=== PATIENT | female | born 1970 | race Asian ===

== ENCOUNTER 2022-08-03 08:36 | Day surgery (SDC) | payer OTHER, SELFPAY ==
[2022-07-30 12:30] VITALS: BMI 19.4
--- NOTE | 2022-08-02 12:03 | P.CONAN_ITS ---
Documented by User: Conchis Nash NP 08/02/22 12:03 HPI - Anesthesia Eval Consult details Narrative: 52yo F for Colonoscopy PENDING SALE TO [facility] Past Medical History Medical History Cervical radiculopathy Endometrial cancer History of COVID-19 Hypothyroid Surgical History Surgical History History of Hx of tonsillectomy Social History Social History Are you a primary patient care associate to a significant other at home: No Do you presently have visiting nurse or other home services: No Patient Tobacco Use Status: Never used Tobacco Use of substances other than those prescribed or required for medical reasons: No Have you been hit, kicked, punched, or otherwise hurt by someone within the past year? If so, by whom?: No Are you DNR?: No Advance Directives Information Provided: Yes (as above noted) Advance Directives on File: No Recently lost weight without trying: No Eating poorly because of decreased appetite: No Nutrition Risks: No Nutritional Risk Patient : No FDLMP: N/A-had hysterectomy Poor oral hygiene: No Meds Allergies Allergy/AdvReac Type Severity Reaction Status Date / Time Sulfa (Sulfonamide Allergy Intermediate Rash Verified 07/30/22 12:30 Antibiotics) Seasonal Allergies Allergy Mild itchy Verified 07/30/22 12:30 eyes/runny nose Home Medications Medication Instructions Recorded Confirmed Last Taken Type dexamethasone 4 mg tablet See Rx Instructions .Route .COMPLEX 07/30/22 07/30/22 Unknown History Exam Exam Date and Time: August 02, 2022 1203 Height,Weight and Vital Signs: Height 5 ft 6 in Weight 54.431 kg Assessment and Plan Assessment Anesthesia Assessment: Chart Reviewed Documented by User: Keri Short MD 08/03/22 10:04 PENDING SALE TO [facility] Past Medical History Medical History Cervical radiculopathy Endometrial cancer History of COVID-19 Hypothyroid Surgical History Surgical History History of Hx of tonsillectomy History of Problems with Anesthesia: No Social History Social History Are you a primary patient care associate to a significant other at home: No Do you presently have visiting nurse or other home services: No Patient Tobacco Use Status: Never used Tobacco Use of substances other than those prescribed or required for medical reasons: No Have you been hit, kicked, punched, or otherwise hurt by someone within the past year? If so, by whom?: No Are you DNR?: No Advance Directives Information Provided: Yes (as above noted) Advance Directives on File: No Recently lost weight without trying: No Eating poorly because of decreased appetite: No Nutrition Risks: No Nutritional Risk Patient : No FDLMP: N/A-had hysterectomy Poor oral hygiene: No Meds Allergies Allergy/AdvReac Type Severity Reaction Status Date / Time Sulfa (Sulfonamide Allergy Intermediate Rash Verified 07/30/22 12:30 Antibiotics) Seasonal Allergies Allergy Mild itchy Verified 07/30/22 12:30 eyes/runny nose Home Medications Medication Instructions Recorded Confirmed Last Taken Type dexamethasone 4 mg tablet See Rx Instructions .Route .COMPLEX 07/30/22 07/30/22 Unknown History Exam Airway Mallampati Class: I TM Dist: >3cm Neck ROM: Full Loose/Missing/Broken Teeth: No Heart: RRR Lungs: CTA Assessment and Plan Assessment Anesthesia Assessment: Anesthesia Plan Discussed Final Anesthetic Review History of Problems with Anesthesia: No NPO: Yes ASA Class: II Final Preanesthetic Review: Meds/Allgs Chart Reviewed, Consent Obtained/Reviewed and Anes Risks/Benef Reviewed Patient Risk: Low Procedure Risk: Low Anesthetic Plan Anesthetic Plan: MAC: Disposition: Standard PACU
[2022-08-03 09:01] VITALS: BMI 19.4
[2022-08-03 09:22] VITALS: BP 151/93; PULSE 68; RESP 15; TEMP 36.2; O2SAT 100
--- NOTE | 2022-08-03 09:38 | MHC.SHP ---
Pre-Procedural Eval Section A Date of Service: 08/03/22 Section B Chief Complaint: screening Relevant Family History (Specify if Yes): No Relevant Social History: None Present Medications: see Short Stay Collaborative assessment Medical History: Significant History (Cervical radiculopathy Endometrial cancer History of COVID-19 Hypothyroid) History of Previous Operations: Relevant previous surgery/procedure and date(s) (c section, Hx of tonsillectomy, pelvic surgery) Allergies: Allergies Allergy/AdvReac Type Severity Reaction Status Date / Time Sulfa (Sulfonamide Allergy Intermediate Rash Verified 07/30/22 12:30 Antibiotics) Seasonal Allergies Allergy Mild itchy Verified 07/30/22 12:30 eyes/runny nose Review of Systems Sugical H&P ROS: Negative: Constitution, Cardiovascular, Respiratory, Neurological, Psychiatric, Hem-Onc, Allergic/Immunologic, Gastrointestinal, Genitourinary, Musculoskeletal, Integumentary, Endocrine and Eyes/Ears/Nose/Throat Exam Surgical H&P Exam: Normal: HEENT, Normal: Heart, Normal: Lungs, Normal: Extremities, Normal: Abdomen, Normal: Skin and Normal: Neurological Plan Diagnosis/Plan: Unchanged I have reviewed the history and physical and performed a pertinent physical examination on my patient. No changes have occurred unless specified. Time Spent With Patient Time: Total time managing care of this patient today ____ minutes.
--- NOTE | 2022-08-03 09:39 | W.PM.OPN ---
Operative Note Operative Note Date of Service: 08/03/22 Narrative: Operative Information Procedure Description: Colonoscopy Indication: colon screeening Anesthesia: MAC COLONOSCOPY Instrument: Olympus variable stiffness pediatric scope 190L Colonoscopy Monitoring: Vital signs and clinical assessment, continuous EKG monitoring, Pulse oximetry, Carbon Dioxide monitoring and blood pressure monitoring were done throughout the procedure. Colon withdrawal time was 13 minutes. Procedure: The patient was placed in the left lateral decubitis position and pre-procedure medications were administered. After a digital rectal examination of the ano-rectum, the video colonoscope was inserted into the rectum and advanced through the colon to the cecum/TI. The colonoscope was slowly withdrawn in a retrograde panoramic fashion and the colon mucosa was carefully examined including a retroflexed view of the rectum. Findings and interventions are described below. Procedure Difficulty: easy Findings: Terminal Ileum-normal Cecum:normal Right sided retroflexion--normal Ascending Colon: normal Transverse Colon -normal Descending Colon:normal Sigmoid Colon: normal Rectum: Retroflexion with small internal hemorrhoids, grade I, x 1 sessile polyp 4-6 mm removed with cold forceps Anorectum - normal Colon preparation: [place] Bowel Preparation Scale Right colon; 2 Transverse colon: 3 Left colon; 3 (0 = Unprepared colon segment with mucosa not seen due to solid stool that cannot be cleared. 1 = Portion of mucosa of the colon segment seen, but other areas of the colon segment not well seen due to staining, residual stool and/or opaque liquid. 2 = Minor amount of residual staining, small fragments of stool and/or opaque liquid, but mucosa of colon segment seen well. 3 = Entire mucosa of colon segment seen well with no residual staining, small fragments of stool or opaque liquid) Impression and Post Procedure Diagnosis: internal hemorrhoids polyp Plan: High fiber diet leaflet Avoid straining at stool, epsom salts and sitz bath, anusol supps or cream Repeat Colonoscopy in 5-7 years if adenomatous polyp, 10 years if hyperplastic or earlier if clinically indicated Above findings were reviewed with the patient and relevant handouts were provided if indicated.
--- NOTE | 2022-08-03 09:45 | P.CONAN_ITS ---
[facility] Past Medical History Medical History Cervical radiculopathy Endometrial cancer History of COVID-19 Hypothyroid Surgical History Surgical History History of Hx of tonsillectomy Social History Social History Are you a primary child care lead teacher to a significant other at home: No Do you presently have visiting nurse or other home services: No Patient Tobacco Use Status: Never used Tobacco Use of substances other than those prescribed or required for medical reasons: No Have you been hit, kicked, punched, or otherwise hurt by someone within the past year? If so, by whom?: No Are you DNR?: No Advance Directives Information Provided: Yes (as above noted) Advance Directives on File: No Recently lost weight without trying: No Eating poorly because of decreased appetite: No Nutrition Risks: No Nutritional Risk Patient : No FDLMP: N/A-had hysterectomy Poor oral hygiene: No Meds Allergies Allergy/AdvReac Type Severity Reaction Status Date / Time Sulfa (Sulfonamide Allergy Intermediate Rash Verified 07/30/22 12:30 Antibiotics) Seasonal Allergies Allergy Mild itchy Verified 07/30/22 12:30 eyes/runny nose Active Medications: Current Medications Lactated Ringer's (Lr) 1,000 mls @ 100 mls/hr IVCONT .Q10H ARVIND Ondansetron HCl (Ondansetron Hcl 4 Mg/2 Ml Vial) 4 mg IVPUSH ONCE PRN PRN Reason: Nausea and Vomiting Home Medications Medication Instructions Recorded Confirmed Last Taken Type dexamethasone 4 mg tablet See Rx Instructions .Route .COMPLEX 07/30/22 07/30/22 Unknown History Exam Exam Date and Time: August 03, 2022 0945 Height,Weight and Vital Signs: Height 5 ft 6 in Weight 54.431 kg Last Vital Signs Temp 97.1 F 08/03/22 09:22 Pulse 68 08/03/22 09:22 Resp 15 08/03/22 09:22 BP 151/93 H 08/03/22 09:22 Pulse Ox 100 08/03/22 09:22 O2 Del Method Room Air 08/03/22 09:22
[2022-08-03 10:23] VITALS: BP 131/84; PULSE 61; RESP 18; TEMP 36.3; O2SAT 100
[2022-08-03 10:49] VITALS: BP 143/88; PULSE 65; RESP 18; TEMP 36.3; O2SAT 100
== END 2022-08-03 11:10 | disposition home or self-care (01) ==
PROVIDERS: PCP Internal Medicine; Visit Provider Internal Medicine Gastroenterology
PROC: 0DJD8ZZ Inspection of Lower Intestinal Tract, Via Natural or Artificial Opening Endoscopic (ICD-10-PCS; CPT 45378; principal; 2022-08-03 10:10)
DX: Z12.11 Encounter for screening for malignant neoplasm of colon (principal); K62.1 Rectal polyp; K64.0 First degree hemorrhoids; Z85.42 Personal history of malignant neoplasm of other parts of uterus; Z88.2 Allergy status to sulfonamides
CPT/HCPCS: 45380; 88305

== ENCOUNTER 2023-09-23 16:16 | Outpatient (AMB) | payer OTHER, SELFPAY ==
[2023-09-23 16:22] VITALS: BMI 20.8
--- NOTE | 2023-09-23 16:22 | A.OFFVIS_ITS ---
Vital Signs 09/23/23 16:22 Height 5 ft 5.5 in Weight 127 lb BMI 20.8 Intake Visit Reasons: Left Ankle Pain Intake Note: Farnaz is a 53 year old female who presents today with left foot/ankle pain. Patient reports that she was on vacation in [facility] when she was walking down an incline and did not see a step. Because she did not see the step down she landed akwardly on the left foot causing the foot to roll laterally and she fell to her hands and knees. She was seen with a doctor on the cruise she was on but her pain had improved slightly. Upon return home she realized that she was having increased pain. Denies numbness and tingling. Allergies Sulfa (Sulfonamide Antibiotics) Allergy (Intermediate, Verified 09/23/23 16:24) Rash Seasonal Allergies Allergy (Mild, Verified 09/23/23 16:24) itchy eyes/runny nose HPI HPI Left Ankle Pain: Details: 53 yo F who twisted her left ankle in [place] ~ 2 weeks ago. She was unable to walk well initially but this resolved within days and she was walking comfortably. Recently however she has started to have anteromedial ankle pain with ambulation. [facility] Medical History Endometrial cancer Cervical radiculopathy Hypothyroid History of COVID-19 Surgical History Hx of tonsillectomy History of Social History Are you a primary care provider to a significant other at home: No Do you presently have visiting nurse or other home services: No Patient Tobacco Use Status: Never used Tobacco Physical Exam Vital Signs: BMI result Body Mass Index 20.8 Extrem Other: left ankle with mild effusion and ttp over distal tib ant and ED. No deltoid ttp and neg ant drawer. Assessment & Plan Assessment & Plan (1) Anterior tibialis tendinitis: Code(s): M76.819 - Anterior tibial syndrome, unspecified leg Category: Medical Plan: Tendonitis after inversion injury to left ankle ~2-3 weeks ago. Boot for ambulation and follow up in 7-10 d. No additional ortho intervention warranted at this time. Coding Level of Care Code New Pt Level 3 (53310) Diagnoses Anterior tibialis tendinitis M76.819
== END 2023-09-23 17:00 | disposition home or self-care (01) ==
LOC: HO.HOS 16:16
PROVIDERS: PCP Nurse Practitioner Family; Visit Provider Orthopaedic Surgery
DX: M76.819 Anterior tibial syndrome, unspecified leg (principal)
CPT/HCPCS: 99203

== ENCOUNTER → 2023-09-23 16:16 | Outpatient (BNVA) | payer OTHER, SELFPAY | PROVIDERS: PCP Nurse Practitioner Family; Visit Provider Orthopaedic Surgery ==

== ENCOUNTER 2023-11-26 10:53 | Outpatient (REF) | payer OTHER, SELFPAY ==
[2023-11-26 11:05] LABS: MANUAL DIFF FLAG NO
[2023-11-26 11:23] LABS: Basophils Percent Auto 0.4 % (0-2); Eosinophils Absolute Auto 0.2 X10*3/uL (0.0-0.4); Eosinophils Percent Auto 3.1 % (0-4); Hematocrit 43.7 % (37.0-47.0); Hemoglobin 13.7 g/dl (12.0-16.0); Imm Gran Abs Auto 0.02 X10*3/uL (0.00-0.03); Imm Gran Pct Auto 0.4 % (0.0-0.4); Lymphocytes Absolute Auto 1.9 X10*3/uL (1.2-4.9); Lymphocytes Percent Auto 38.7 % (20-40); Mean Corpuscular HGB Conc 31.4 g/dl (31.0-35.0); Mean Corpuscular Hemoglobin 25.3 pg (27.0-33.0); Mean Corpuscular Volume 80.6 fL (80.0-98.0); Mean Platelet Volume 8.9 fL (9.4-12.3); Monocytes Absolute Auto 0.5 X10*3/uL (0.1-1.2); Monocytes Percent Auto 10.2 % (2-11); Neutrophils Absolute Auto 2.3 x10*3/uL (2.0-8.3); Neutrophils Percent Auto 47.2 % (45-73); Platelet Count 250 X10*3/uL (160-400); Red Blood Count 5.42 X10*6/uL (4.20-5.50); Red Cell Distribution Width 13.6 % (11.0-16.0); White Blood Count 4.9 X10*3/uL (4.8-10.8)
[2023-11-26 12:03] LABS: Alanine Aminotransferase 17 U/L (0-31); Albumin Level 4.1 g/dL (3.5-5.0); Alkaline Phosphatase 105 U/L (39-117); Anion Gap 14 (12-20); Aspartate Amino Transferase 15 U/L (5-31); Bilirubin Total 0.5 mg/dL (0.0-1.0); Blood Urea Nitrogen 12 mg/dL (9-16); Calcium 9.8 mg/dL (8.4-10.2); Carbon Dioxide 28 mmol/L (22-29); Chloride 106 mmol/L (96-108); Cholesterol 208 mg/dL (<200); Estimated Glomerular Filt Rate > 60; Glucose Fasting 103 mg/dL (60-99); HDL Cholesterol 41 mg/dL (>40); LDL Cholesterol Calculated 141 mg/dL (<100); Potassium 4.9 mmol/L (3.3-5.1); Sodium 143 mmol/L (135-145); Total Protein 7.9 g/dL (6.5-8.0); Triglycerides 132 mg/dL (<150)
[2023-11-26 12:21] LABS: Free T4 (Free Thyroxine) 0.83 ng/dL (0.71-1.85); Thyroid Stimulating Hormone 2.94 uIU/mL (0.32-4.0)
== END 2023-11-26 10:54 | disposition home or self-care (01) ==
LOC: HO.LAB 10:53
PROVIDERS: PCP Internal Medicine Medical Oncology; Visit Provider Internal Medicine Medical Oncology
DX: I10 Essential (primary) hypertension (principal); E05.90 Thyrotoxicosis, unspecified without thyrotoxic crisis or storm; E55.9 Vitamin D deficiency, unspecified
CPT/HCPCS: 36415; 80053; 80061; 82306; 84439; 84443; 85025

== ENCOUNTER 2024-10-16 15:00 | Outpatient (REF) | payer OTHER, SELFPAY ==
--- OUTSIDE RECORDS SUMMARY | 2024-08-24 05:30 | XMS_ITS ---
Author Organization Rufino John III, MD Address [address] [place] [address] Care Team Providers Care Mva Still Operator Name Role Phone Rufino John Primary Care Provider Allergies Allergen (clinical drug ingredient) Drug/Non Drug Allergy documented on EMR Reaction Allergy Type Onset Date Status sulfacetamide Sulfacetamide rash Drug Allergy Active No Known Food Allergy Unknown Drug Allergy Active REASON FOR VISIT Endometrial cancer in remission, Neck pain, History of thyroiditis, Seasonal allergy Medications Medication SIG (Take, Route, Frequency, Duration) Notes Start Date End Date Status Macrodantin 100 MG 1 capsule Orally twi ce a day 11/08/2023 Active Veozah 45 MG 1 tablet Orally Once a day 11/08/2023 Active Ergocalciferol 1.25 MG (65783 UT) 1 capsule Orally weekly 11/08/2023 Acti ve Social History Tobacco Use: Social History Observation Description Date Details (start date - stop date) Never Smoker NA - NA Sex Assigned At : Social History Observation Description Sex Assigned At Female Tobacco Use/Smoking Question Answer Notes Patient is a nonsmoker Additional Findings: Tobacco Non-User Aggressive non-smoker Vital Signs Temperature 97.9 degrees Fahrenheit 08/25/19 25 Blood pressure systolic 130 mm Hg 08/25/19 25 Blood pressure diastolic 80 mm Hg 025 Heart Rate 56 /min 08/24/2024 Height 64.75 in 08/24/2024 Weight 126 lbs 08/24/2024 BMI 21.13 kg/m2 08/24/2024 Encounters Encounter Location Date Provider Diagnosis Rufino John III, MD [address] [place] [address] [place] [address] 08/24/2024 Rufino John Teresa's thyroidi tis E06.3 ; Endometrial cancer C54.1 ; Vitamin D deficiency E55.9 ; Breast cancer screening Z12.31 ; Seasonal allergies J30.2 and Cervical radiculopathy M54.12 Assessments Encounter Date Diagnosis (ICD Code) Assessment Notes Treat ment Notes Treatment Clinical Notes 08/24/2024 Teresa's thyroiditis (ICD-10 - E06.3) Comprehensive blood work including a TSH has been ordered to be done in the next few days. 08/24/2024 Endometrial cancer (ICD-10 - C54.1) She was found to have an early-stage endometrial carcinoma treated with surgery and then radiation at [facility] last year. She appears to be in durable remission at this time. 08/24/2024 Vitamin D deficiency (ICD-10 - E55.9) She will continue on her vitamin D supplement 08/24/2024 Breast cancer screening (ICD-10 - Z12.31) Mammogram has been ordered. There was no sign of breast tumor on today's examination. 08/24/2024 Seasonal allergies (ICD-10 - J30.2) She is currently asymptomatic. Normally. She will use an [id number] nondrowsy antihistamine. 08/24/2024 Cervical radiculopathy (ICD-10 - M54.12) She has occasional pain in her neck with range of motion but is free of that symptom currently. It will be treated as needed. Plan Of Treatment Medication Medication Name Sig Start Date Stop Date Notes Macrodantin 100 MG 1 capsule Orally twi ce a day 11/08/2023 Veozah 45 MG 1 tablet Orally Once a day 11/08/2023 Ergocalciferol 1.25 MG (78416 UT) 1 capsule Orally weekly 11/08/2023 Pending Test Test Name Order Date PROFILE, FASTING (COMPREHENSIVE METABOLI C) 08/24/2024 TSH (THYROID STIMULATING HORMONE) 2024 CBC w DIFF 08/24/2024 Lipid Panel 08/24/2024 Free T4 (Free Thyroxine) 08/24/2024 MM tomosynthesis screening BI 08/24/2024 Hemoglobin A1c 08/24/2024 Next Appt Details Follow Up: 4 Months, Reason: OV Provider Name:Rufino John, 12/25/2024 09:30:00 AM, [address] [place] [address] [address], [place], [address], Progress Notes * ROLANDA HARTIDOB:[birth year] (54 yo F)Acc No.[id number]:08/24/2024 Progress Notes Patient: RACHEL ALMARAZ Provider: Ting John MD :1970 A ge:54 Y S ex:Female Date:08/24/2024 Address:[address] [place], [place] [id number] Subjective: * Chief Complaints: * E ndometrial cancer in remissionNeck painHistory of thyroiditisSeasonal allergy * HPI: C OVID-19 Screening: S he returns to the office for a scheduled periodic visit to manage her medical issues. We discussed her father whom she wants to have in the practice. She has no new complaints. She is working full-time and denies any chest pain shortness of breath bleeding nausea or vomiting or fever. She has been well since her last visit and compliant with her medications. Comprehensive blood work has been ordered. Questions H ave you had any new onset fever, chills, cough, congestion, sore throat, shortness of breath, muscle aches? N o * ROS: G eneral/Constitutional: pain O ccasional intermittent neck pain, otherwise only normal aches and pains. C hills d enies. F atigue a dmits. F ever d enies. E NT: Decreased hearing d enies. R espiratory: Cough d enies. C ardiovascular: Chest pain with exertion d enies. D yspnea on exertion?denies. S hortness of breath d enies. G astrointestinal: Constipation d enies. D ecreased appetite d enies.?Diarrhea d enies. H eartburn d enies. N ausea d enies. R ectal bleeding?denies. V omiting d enies. H ematology: bruising d enies. p etechiae d enies. S wollen glands n one have been noted. G enitourinary: Frequent urination d enies. M usculoskeletal: Muscle aches d enies. P ainful joints d enies. S ciatica d enies. W eakness d enies. S kin: Itching d enies. R cristhian d enies. S kin lesion(s)?denies. N eurologic: Difficulty speaking d enies. D izziness d enies.?Headache d enies. L ow back pain d enies. P sychiatric: Depressed mood d enies. * Medical History: * Surgical History: T onsilectomy x 2 2004, bdominal Hysterectomy, Bilateral Salpingectomy, [place] lymph node biopsy olonoscopy, Dr. Villa, [facility], hyperplastic polyp and internal hemorrhoids G [id number] in [facility] * Hospitalization/Major Diagno stic Procedure: D enies Past Hospitalization * Family History: F ather: alive, prostate cancer, diagnosed with Cancer, DM, HTN, Hyperlipidemia. M other: alive, diagnosed with HTN, DM. 1 brother(s) , 1 sister(s) . 1 son(s) , 1 daughter(s) - healthy. . A sister, Lupe, has Down's syndrome. A brother, Vince, is healthy and well. Her children are otherwise healthy and well.Her father has prostate cancer treated with brachii therapy and intermittent androgen deprivation. He also has hypertension and depression. Her mother is healthy and well at 86. There is no family history of malignancy.She is not aware of any family history of substance abuse or addiction. She is not aware of any family history of mental illness, other than her father's depression. * Social History: T obacco Use: T obacco Use/Smoking P atient is a n onsmoker A dditional Findings: Tobacco Non-User A ggressive non-smoker H er father is a diplomat from [place]. She was born in [place] and then lived in [place] and then in [place] where her father works the night. [employer]. She then moved to [facility]. She attended medical school at [employer]. He'll be in [place]. She is with 2 children. Her is [place] and is unemployed. Her son Bret is 19 in her daughter, Marlene is 16. They are healthy and well. They're both in college. She is working part-time at [employer] and part-time at [employer] in [place].Her spouse's name is Jose Larry. She has no buddhist objection to blood transfusion. She is a nonsmoker. Her father is from [place] and her mother is [place]. * Medications: T akingErgocalciferol 1.25 MG (97581 UT) Capsule 1 capsule Orally weekly Macrodantin 100 MG Capsule 1 capsule Orally twice a day Veozah 45 MG Tablet 1 tablet Orally Once a day Medication List reviewed and reconciled with the patientTaking Ergocalciferol 1.25 MG (83345 UT) Capsule 1 capsule Orally weekly Taking Macrodantin 100 MG Capsule 1 capsule Orally twice a day Taking Veozah 45 MG Tablet 1 tablet Orally Once a day Medication List reviewed and reconciled with the patient * Allergies: S ulfacetamide: rash - AllergyNo Known Food Allergyno[Allergies Verified] Objective: * Vitals: H t: 64.75, Wt: 126, BMI:21.13, BP: 130/80, HR: 56, Temp: 97.9, Ht-cm: 164.47, Wt- k.15. * Examination: G eneral Examination: GENERAL APPEARANCE: p leasant, well nourished, well developed, in no acute distress, calm and relaxed. HEAD: a traumatic, normocephalic. EYES: e jaun, perrla, anicteric, conjugate. EARS: n ormal. NOSE: s eptum intact. ORAL CAVITY: n ormal, unremarkable. NECK/THYROID: n o jugular venous distention, no carotid bruit, thyroid normal. LYMPH NODES: n o enlarged lymph nodes,spleen normal. SKIN: n o suspicious lesions, anicteric. HEART: n o clicks, gallops, murmurs, or rubs, regular rhythm, S1, S2 normal, no s3, or vascular bruits. LUNGS: c lear to auscultation . BREASTS: n o masses palpable bilaterally, no dimpling, no discharge, no drainage, nontender, symmetrical. ABDOMEN: b owel sounds normal, no ascites, no organomegaly, no mass. RECTAL EXAM: n ot examined. MUSCULOSKELETAL: e xtremities unremarkable, no clubbing, cyanosis or edema. PERIPHERAL PULSES: n ormal. NEUROLOGIC: a lert and oriented, cranial nerves 2-12 grossly intact, deep tendon reflexes 2+ symmetrical, motor strength normal upper and lower extremities, sensory exam intact. PSYCH: a lert, oriented. Assessment: * Assessment: 1. E ndometrial cancer - C54.1 (Primary) N otes :She was found to have an early-stage endometrial carcinoma treated with surgery and then radiation at [facility] last year. She appears to be in durable remission at this time. 2 . H ashimoto's thyroiditis - E06.3 N otes :Comprehensive blood work including a TSH has been ordered to be done in the next few days. 3 . V itamin D deficiency - E55.9 N otes :She will continue on her vitamin D supplement 4 . B reast cancer screening - Z12.31 N otes :Mammogram has been ordered. There was no sign of breast tumor on today's examination. 5 . S easonal allergies - J30.2 N otes :She is currently asymptomatic. Normally. She will use an [id number] nondrowsy antihistamine. 6 . C ervical radiculopathy - M54.12 N otes :She has occasional pain in her neck with range of motion but is free of that symptom currently. It will be treated as needed. Plan: * Treatment: 2. V itamin D deficiency L AB: PROFILE, FASTING (COMPREHENSIVE METABOLIC) L AB: TSH (THYROID STIMULATING HORMONE) L AB: CBC w DIFF L AB: Lipid Panel L AB: Free T4 (Free Thyroxine) L AB: Hemoglobin A1c 3. B reast cancer screening I maging: MM tomosynthesis screening BI 4. O thers Continue Ergocalciferol Capsule, 1.25 MG (06745 UT), 1 capsule, Orally, weekly; C ontinue Macrodantin Capsule, 100 MG, 1 capsule, Orally, twice a day; C ontinue Veozah Tablet, 45 MG, 1 tablet, Orally, Once a day. * Procedure Codes: * Follow Up: 4 Months (Reason: OV) * Images: * Sign off status: Completed true * Provider: Ting John MD Date: 0 08/24/2024 Generated for Naomy leyva/Yessy/Bijanitting on: 10/16/2024 03:52 PM EDT History and Physical Notes * HPI (History of Present Illness) Category Sub-Category Detail Notes COVID-19 Screening Questions Have you had any new onset fever, chills, cough, congestion, sore throat, shortness of breath, muscle aches?: No Examination Category Sub-Category Detail Notes General Examination GENERAL APPEARANCE: pleasant , well nourished, well developed, in no acute distress, calm and relaxed HEAD: atraumatic, normocep halic EYES: eomi, perrla, anicte adan, conjugate EARS: normal NOSE: septum intact NECK/THYROID: no jugular venous di stention, no carotid bruit, thyroid normal HEART: no clicks, gallops, murmurs, or rubs, regular rhythm, S1, S2 normal, no s3, or vascular bruits LUNGS: clear to auscultatio n ABDOMEN: bowel sounds normal, no ascites, no organomegaly, no mass NEUROLOGIC: alert and oriented, cranial nerves 2-12 grossly intact, deep tendon reflexes 2+ symmetrical, motor strength normal upper and lower extremities, sensory exam intact SKIN: no suspicious lesion s, anicteric PERIPHERAL PULSES: normal BREASTS: no masses palpable b ilaterally, no dimpling, no discharge, no drainage, nontender, symmetrical MUSCULOSKELETAL: extremities unremark able, no clubbing, cyanosis or edema LYMPH NODES: no enlarged lymph no basim,spleen normal RECTAL EXAM: not examined PSYCH: alert, oriented ORAL CAVITY: normal, unremarkable
--- OUTSIDE RECORDS SUMMARY | 2024-10-16 15:53 | XMS_ITS | Data Portability ---
Author Organization [facility], RADIOLOGY Address [address] [place] [address] Assessment Encounter Date Assessment Date Assessment LastModified by Organization Details LastModified Time 01/14/2023 01/14/2023 MDM: 52 y/o female with bilateral ear pain. Well appearing, in NAD, nontoxic, afebrile. Currently being treated with augmentin for sinus infection. Flying soon, ear with fluid level in left ear. Rx sent for prednisone taper. Return to care instructions discussed with patient. [place] Not available 01/16/2023 17:22:38 Plan of Treatment Reminders Order Date Submit Date Provider Last Modified By Organization Details Last Modified Time Details Appointments None recorded. Lab TSH, ultra-sen sitive, serum 2020 021 [facility] (Lab), [address] [place], [address], 13:53:51 Referral None recorded. Procedures None recorded. Surgeries None recorded. Imaging US, pelvis - Has a Mirena IUD recently inserted. Confirm position. [address] (Imaging), [address] [place], [address], 2 10:39:50 MAMMO, screening , bilateral - Due in February 272020 021 [facility] (Imaging), [address] [place], [address], 2 16:30:32 Medication Orders prednison e 10 mg tablet 2022 023 [facility]/Pharmacy #[id number], [address] [place], [address], 3 14:45:07 prednison e 20 mg tablet [id number], [address] [place], [address], 3 14:51:10 Liletta 20.4 mcg/24 hr (up to 8 years) 52 mg intrauter ine device 2021 022 [email or web address] [facility]/Pharmacy #[id number], [address] [place], [address], 3 14:13:21 norethind joseph acetate 5 mg tablet 2020 022 [facility]/Pharmacy #[id number], [address] [place], [address], 2 08:55:00 Patient TargetsNo targets recorded. Patient Instructions Encounter Date Encounter Id Patient Instructions Last Modified By Organization Details Last Modified Time 04/28/2020 [id number] For administrati ve purposes, I am closing this encounter. [email or web address] Not available 06/25/2020 15:06:53 Reason for Referral None Reported. Results Created Date Observation Date Name Description Value Unit Range Abnormal Flag Note LastModifiedBy Organization Detail LastModifiedTime 05/05/1905/07/2020 tb (M tuber culos is), ifn-g alphonso eduardo , blood quantiferon- TB Negati ve negati ve normal Not Available [facility] (Lab) [address] [place], [address], 05/07/2020 13:57:57 05/05/1905/07/2020 tb (M tuber culos is), ifn-g alphonso eduardo , blood qf mitogen-nil 8.040 IU/mL normal Not Available [facility] (Lab) [address] [place], [address], 05/07/2020 13:57:57 05/05/19 21 05/07/2020 tb (M tuber culos is), ifn-g alphonso eduardo , blood qf nil 0.010 IU/mL normal Not Available [facility] (Lab) [address] [place], [address], 05/07/2020 13:57:57 05/05/19 21 05/07/2020 tb (M tuber culos is), ifn-g alphonso eduardo , blood qf TB Ag1-nil 0.020 IU/mL normal Not Available [facility] (Lab) [address] [place], [address], 05/07/2020 13:57:57 05/05/19 21 05/07/2020 tb (M tuber dallinos is), ifn-g alphonso eduardo , blood qf TB Ag2-nil 0.010 IU/mL normal Not Available [facility] (Lab) [address] [place], [address], 05/07/2020 13:57:57 05/05/1905/07/2020 tb (M tuber culos is), ifn-g alphonso eduardo , blood qf TB interp See Result normal M. carol zamarripaos is infec tion NOT likel y A negat vikram speci men shoul d have a TB1 Ag minus Nil value and TB2 Ag minus Nil value of less than 0.35 IU/mL OR a TB1 Ag minus Nil or TB2 A g minus Nil value great er than or equal to 0.35 IU/mL AND a TB Ag minus Nil va lue from the same tube of less than 25% of the Nil value . A negat vikram speci men must also have a mitog en minus Nil value great er than or equal to 0.5 IU/mL . A negat vikram QFT-P ekta resul t does not precl ude the possi bilit y of M. carol zamarripaos is infec tion. False negat vikram resul ts can occur due to stage of infec tion (spec imen obtai jeremiah prior to the devel opmen t of immun e respo nse), co-mo rbid condi tions which affec t immun e funct ion, or other immun ologi karina facto rs . Perfo rmed by: 3, [facility] [place] tment of Patho logy [facility] [employer] [place] [address] Alayna Palacios MD Not Available [facility] (Lab) [address] [place], [address], 05/07/2020 13:57:57 12/24/19 21 12/23/2020 THYRO ID STIM HORMO NE/TS H [facility] thyroid stimulating hormone 3.69 mciu/ mL 0.27 - 4.20 Not Available [facility] (Lab) [address] [place], [address], 12/23/2020 13:53:51 03/03/20 21 03/23/2021 SURGE RY surgical pathology request RESULT S REC'D See separ ate repor t. Not Available [facility] (Lab) [address] [place], [address], 03/23/2021 06:55:03 10/06/19 22 10/12/2021 SURGE RY surgical pathology request RESULT S REC'D See separ ate repor t. Not Available [facility] (Lab) [address] [place], [address], 10/12/2021 07:25:25 12/26/19 21 03/07/2018 MAMMO sanjay bilat eral No observ ation record ed. Not Available 2020 16:32:53 10/06/19 22 03/06/2021 MAMMO sanjay bilat eral No observ ation record ed. [email or web address] [facility] (Imaging) [address] [place], [address], 10/05/2021 16:30:32 10/10/19 22 10/09/2021 US trans vagin al [place] [facility] Report Pt Name: ROLANDA HOBSON I - : 1969 - [facility]#: [id number] - [facility]#: [id number] Exam Date: 2021 07:20 Ordere d by: JOZEF RUTHERFORD EXAMIN ATION: US PELVIS TV CLINIC AL HISTOR Y: n93.9 abnorm al uterin e bleedi ng mirena IUD placed 022 TECHNI QUE: Transv aginal ultras ound was perfor med with multip le projec tions throug h the pelvis follow ing the depart ment protoc ol. Color- flow Dopple r was utiliz ed as well. COMPAR RANDY: None FINDIN GS: Uterus measur es 9.6 x 5.1 x 6.2 cm. There are no myomet rial masses Endome trial stripe is thicke jeremiah and hetero geneou s. It measur es 2.6 cm. It was not evalua emery with color flow Dopple r. There is a IUD positi oned in the lower uterin e body. 3-D evalua tion of the endome trial stripe was perfor med. Right ovary measur es 2.6 x 1.6 x 2.2 cm. Left ovary measur es 3.8 x 2.0 x 2.7 cm. There are no ovaria n masses demons trated . The left side there are follic les demons trated within the domina nt follic le measur ing 2.2 x 2.2 x 2.4 cm there is a small periph eral daugh ter cyst incide ntally noted. No free pelvic fluid. IMPRES ELISABET: 1. The IUD is not normal ly positi oned. It is within the lower uterin e body endome trial canal. 2. The endome trial stripe is hetero geneou s and thicke jeremiah, measur ing 2.6 cm Recomm end follow -up-salazar ch as repeat ultras ound in 6 weeks. UNEXPE CTED CATHRYN G Thank you for denita hoyos us partic ipate in the care of this patien t. If you are a health care provid er and have any questi ons regard ing this report , please contac t the number below. For patien ts who have questi ons please contac t the health care profes sional that reques emery your imagin g first. Electr onical ly signed by: Leonard fontenot, Radiol ogy Jenna katrin ([phone]), at 022 10:[address] (Imaging) [address] [facility] [place], [address], 10/13/2021 08:04:50 07/01/19 23 03/02/2022 DEXA, axial skele ton No observ ation record ed. [email or web address] Not Available 2022 14:14:59 07/01/19 23 03/09/2022 MAMMO , scree cornelia, bilat eral No observ ation record ed. [email or web address] Not Available 2022 14:23:36 06/17/19 24 06/17/2023 MAMMO , scree cornelia, bilat eral [place] [facility] Rad[facility]gy Report Pt Name: ROLANDA HOBSON I - : 1969 - - [facility]#: [id number] Exam Date: 2023 09:52 Ordere d by: JOZEF RUTHERFORD EXAMIN ATION: MAMMO SCREEN ING CAD AND EDIS BILATE RAL REASON FOR EXAM: Screen ing TECHNI QUE: CC and MLO views were obtain ed of BOTH breast s. 2D and 3D tomosy nthesi s images were obtain ed. Comput er aided detect ion was used. COMPAR RANDY: Compar randy was made to the prior releva nt examin ations . BREAST DENSIT Y: The breast tissue is hetero geneou sly dense, which may obscur e small masses . FINDIN GS: There are no suspic ious microc alcifi cation s, masses , or areas of distor tion. Stable appear ance. IMPRES ELISABET: No mammog raphic eviden ce of malign ben. Routin e annual screen ing mammog aron is recomm ended. FINAL ASSESS MENT: BI-RAD S Catego ry 1: Negati ve * Regula r screen ing mammog rex starti ng at age 40 reduce s the risk of from breast cancer . * Yearly screen ing provid es the most benefi t. Women should discus s with their provid er their prefer red breast cancer screen ing sinanu le. * Women should report any breast change s to a health care provid er right away. * Some women, nikolai marquez of their family histor y, a geneti c tenden cy, or other factor s, should be screen ed with annual breast MRI as well as with mammog rex. Thank you for denita hoyos us partic ipate in the care of this patien t. If you are a health care provid er and have any questi ons regard ing this report , please contac t the number below. For patien ts who have questi ons please contac t the health care profes sional that reques emery your imagin g first. Electr onical ly signed by: Nikki edwards MD, Radiol triciagrace [place] katrin ([phone]), at 024 1:[address] (Imaging) [address] [place] [address], [address], 06/20/2023 10:52:44 Result Notes Documentation Provider Name and Address Organization Details Recorded Time Mammo, Screening, Bilateral : [facility] Radiology Report Pt Name: FARNAZ HART - : 1970 - - Asc#: [id number] Exam Date: 06/17/2023 09:52 Ordered by: ALLYSON RUTHERFORD EXAMINATION: MAMMO SCREENING CAD AND EDIS BILATERAL REASON FOR EXAM: Screening TECHNIQUE: CC and MLO views were obtained of BOTH breasts. 2D and 3D tomosynthesis images were obtained. Computer aided detection was used. COMPARISON: Comparison was made to the prior relevant examinations. BREAST DENSITY: The breast tissue is heterogeneously dense, which may obscure small masses. FINDINGS: There are no suspicious microcalcifications, masses, or areas of distortion. Stable appearance. IMPRESSION: No mammographic evidence of malignancy. Routine annual screening mammography is recommended. FINAL ASSESSMENT: BI-RADS Category 1: Negative * Regular screening mammograms starting at age 40 reduces the risk of from breast cancer. * Yearly screening provides the most benefit. Women should discuss with their provider their preferred breast cancer screening schedule. * Women should report any breast changes to a health care provider right away. * Some women, because of their family history, a genetic tendency, or other factors, should be screened with annual breast MRI as well as with mammograms. Thank you for letting us participate in the care of this patient. If you are a health care provider and have any questions regarding this report, please contact the number below. For patients who have questions please contact the health hospice home care coordinator that requested your imaging first. Allyson Rutherford MD [address] [place] [address], [phone], [facility] 06/20/2023 10:52:44 Problems Name Problem SNOMED Code Status Onset Date Resolution Date Notes Provider Name and Address Organization Details Recorded Time Hypothyroidism 81721792 Active 2020 s/p Hashim aaron's Allyson Rutherford MD [address] [place] [address], [phone], [facility] 08:56:31 Recurrent urinary tract infection 577084343 Active 2020 Allyson Rutherford MD [address] [place] [address], [phone], [facility] 09:01:42 Problem Notes None recorded. Procedures Surgical History Date Name Laterality Status Provider Name and Address Organization Details Recorded Time 2 IUD Insertion -[facility] completed Allyson Rutherford MD [address] [place] [address], [phone], [facility] 10/05/2021 11:06:51 2 Endometrial Biopsy completed Allyson Rutherford MD [address] [place] [address], [phone], [facility] 10/05/2021 11:04:02 delivery completed [facility] 12/23/2020 08:40:50 tonsilectomy/ad enoids completed [facility] 12/23/2020 08:41:02 Imaging Results None recorded. Procedure Notes None recorded. Medical Equipment None Reported. Allergies Allergen ID Allergen Name Allergen Category Reaction Reaction Severity Criticality Documentation Date Start Date Code Code System Note Provider Name and Address Organization Details Recorded Time Substance with sulfonami de structure and antibacte rial mechanism of action (substanc e) medicatio n rash Not available Not available 12/23/2020 58690 8003 SNOMED Saumyataryn Rice [facility] 08:37:23 Medications Name Sig Start Date Stop Date Status Note LastModified by Organization Details LastModified Time prednisone 10 mg tablet 6 tablets day one, 4 tablets days 2 and 3, 2 tablets days 4 and 5, 1 tablet day 6 2022 active Not Available Not Available Not Avai lable prednisone 20 mg tablet 3 tablets given in clinic 2022 active Not Available Not Available Not Avai lable metronidazo le 500 mg tablet Take 1 tablet every 12 hours by oral route for 7 days. 12/23 completed Not Available Not Available Not Available norethindro ne acetate 5 mg tablet Take 1 tablet twice a day by oral route for 21 days. 10/05 completed Not Available Not Available Not Available Macrodantin with intercour se active Not Available Not Available No t Available Liletta 20.4 mcg/24 hr (up to 8 years) 52 mg intrauterin e device Take 1 device by intrauter ine route. 01/14 completed Not Available Not Available Not Available Vitals Date Recorded Heart rate Oxygen saturation Oxygen saturation in Arterial blood by Pulse oximetry Body weight Systolic And Diastolic Provider Name and Address Organization Details Last Updated DateTime 2 74 /min 98 % 98 % 91470.6 8 g 110/68 mm[Hg] Saumya Rice [facility] 2 09:01:42 Date Recorded Heart rate Systolic And Diastolic Provider Name and Address Organization Details Last Updated DateTime 12/23/2020 65 /min 108/64 mm[Hg] Saumya Rice [facility] 12/23/2020 08:46:09 Date Recorded Body temperature Heart rate Oxygen saturation Oxygen saturation in Arterial blood by Pulse oximetry Systolic And Diastolic Provider Name and Address Organization Details Last Updated DateTime 3 98.2 [degF] 83 /min 95 % 95 % 133/94 mm[Hg] Maribell Moya [facility] 3 14:16:10 Social History Question Answer Notes LastModified by Organizat ion Details LastModified Time Tobacco Smoking Status Never Smoker Saumya Rice major, [facility] 12/23/2020 08:39:25 Do You Have An Advance Directive? Yes Information not available 12/23/2020 Is Blood Transfusion Acceptable In An Emergency? Yes Information not available 12/23/2020 What Is Your Code Status? Full Code Information not available 12/23/2020 In The 14 Days Before Symptom Onset, Have You Had Close Contact With A Laboratory-confir med COVID-19 While That Case Was Ill? No Information not available 12/23/2020 In The 14 Days Before Symptom Onset, Have You Had Close Contact With A Person Who Is Under Investigation For COVID-19 While That Person Was Ill? No Information not available 12/23/2020 Have You Been To An Area Known To Be High Risk For COVID-19? No Information not available 12/23/2020 Do You Have A Medical Power Of Field Superintendent? Yes Information not available 12/23/2020 What Is Your Relationship Status? Information not available 12/23/2020 Have You Recently Traveled Abroad? Yes [place] Information not available 10/05/2021 Sex: Female Functional Status Question Answer Note LastModified by Organizat ion Details LastModified Time What is your level of alcohol consumption? Occasional Information not available 12/23/2020 Are you currently employed? Yes Information not available 12/23/2020 Are you able to walk? YESWOREST Information not available 12/23/2020 Are you able to care for yourself independently? Yes Information not available 12/23/2020 Mental Status None recorded. Family History Relationship Description Onset Age of this Age Resolved Age Notes LastModified by Organization Details LastModified Time Mother Type 2 diabetes mellitus Not available 2020 08:52:39 Father Carcinoma of prostate Not available 2020 08:52:57 Sister Complete trisomy 21 syndrome [email or web address] Not available 2020 08:53:26 Medical History No medical history recorded. Gynecological History Statement/Question Response Date of Last Mammogram Flow Light Sexually Active? Y Menses Monthly No STIs/STDs N Date of Last Pap Smear Current Control Method Tubal Ligat ion Age at Menarche 15 LMP Approximate Age at First Child 33 Obstetrics History GPAL:G 4 P 0 0 2 2 Type Value Spontaneous 2 Living 2 Total 4 Past Encounters Encounter ID Performer Location Encounter Start Date Encounter Closed Date Diagnosis/Indication Diagnosis SNOMED-CT Code Diagnosis ICD10 Code Diagnosis Note [id number] SAMAN AMBROCIO NP [facility] [address] [place] [address] 04/28/2020 08:10:16 04/28/2020 15:22:55 [id number] Allyson Rutherford MD [facility] [address] [place] [address] 12/23/2020 08:30:34 12/23/2020 09:27:26 Gynecologic examination 01506905 Z01.419 Reviewed healthy habits, diet, exercise and BMI goals. Reviewed breast self-aware ness. Mammogram every year. Annual physical exams with PAP smear screening at intervals depending on age and past PAP history. See your primary care provider for other health concerns. Call bank worker for any breast or pelvic concerns. Abnormal u terine bleeding 9757706030 9100 N93.9 If bleeding persists after 72 hours of progestin, would pursue EMB and ultrasound . Screening for malignant neoplasm of breast 384695610 Z12.39 [id number] Allyson Rutherford MD [facility] [address] [place] [address] 10/05/2021 08:50:13 10/05/2021 10:53:01 Abnormal uterine bleeding 7074527311 9100 N93.9 Await EMB result. Insertion of intrauterine contraceptive device 07519363 Z30.430 Cramping can occur after insertion for up to 3-4 days. Use Tylenol, Advil or a heating pad as needed. Irregular bleeding and spotting can occur for up to 3-6 months after which your period may be much manufacturing applications engineer or even stop altogether . Call for fevers, severe pain, heavy bleeding. Try to feel the strings yourself by putting your fingers into your vagina. Call if the strings seem to change length substantia lly or if you have been able to feel the strings and suddenly cannot. [id number] NAIF LEDBETTER NP [facility] [address] [place] [phone] 01/14/2023 14:05:51 01/14/2023 14:50:33 Bilateral earache 333187863 H92.03 Health Concerns Section Related Observation LastModified by Organization Detai ls LastModified Time None Recorded Concern Status LastModified by Organization Details LastModified Time None Recorded Advance Directives Directive Y: Payers Insurance Date Sequence Insurance Name Policy Number Policy Mckeon Covered Member ID Mckeon Member ID Guarantor Name 01/14/2023 [facility] [employer] EV[employer] Farnaz Rambasson [id number] Farnaz Rambissoon 01/31/2023 1 [facility] Farnaz Rambissoon [id number] Farnaz Rambissoon 01/14/2023 1 *SELF PAY* Farnaz Rambissoon SELFPAY Farnaz Rambissoon 01/14/2023 1 [facility] [id number] Farnaz Rambissoon [id number] Farnaz Rambissoon OBGyn Episode No OBEpisode recorded.
--- OUTSIDE RECORDS SUMMARY | 2024-10-16 15:53 | XMS_ITS | Encounter Summary ---
Author Organization [facility] Address [address] [place] [address] Phone Care Team Providers Care Weighter Name Role Phone Unknown, Unknown Primary Care Provider Mary Cazares MD Primary Care Provider EvansEros cox MD Unavailable [phone] Self-Referred, Patient Unavailable Unavailab Jonathan Díaz NP Primary Care Provider + Rufino John MD Primary Care Provider [phone] Jesse Moore MD Unavailable [phone] Encounter Details Date Type Department Care Team (Late st Contact Info) Description 01/05/2018 Ancillary Orders [facility],Outside Imaging [address] [place] [address] System, Provider Not In, [place] [address] Social History Tobacco Use Types Packs/Day Years Used Date Smoking Tobacco: Never Assessed Comments Unknown Sex and Gender Information Value Date Recorded Sex Assigned at Not on file Legal Sex Female 2:16 PM EDT Gender Identity Not on file Sexual Orientation Not on file documented as of this encounter Plan of Treatment Upcoming Encounters Date Type Department Care Team (Late st Contact Info) Description 10/22/2024 8:15 AM EDT Appointment [facility] Imaging - Pet Scan, [address] [place], [place] [id number] Jesse Moore MD [address] [place] [address] [email or web address] 10/25/2024 4:00 PM EDT Office Visit [facility] Oncology [address]th [address], [address] [place] [address] Eros Krueger MD [address] [facility] Obstetrics and Gynecology [address] [place] [address] [email or web address] documented as of this encounter Results * Mammogram Outside (No [...] AM EDT documented as of this encounter Care Teams Weighter Relationship Specialty Start Date End Date Unknown, Unknown, MD PCP - General 01/03/18 01/14/20 Mary Romero MD [address] [place] [address] PCP - General Internal Medicine 01/15/20 03/21/23 Jonathan Boudreaux NP [address] [place] [address] [email or web address] PCP - General Nurse Practitioner 03/22/23 10/24/23 Rufino John MD [address] [place] [address] PCP - General Medical Oncology 10/25/23 Eros Krueger MD [address] [facility] Obstetrics and Gynecology ServiceY[address] [place] [address] [email or web address] 10/12/21 Self-Referred, Patient 01/13/22 Jesse Moore MD [address] [place] [address] [email or web address] Radiation Oncology 08/14/24 documented as of this encounter Additional Source Comments The information contained in this document represents components of the legal health record. It is not the complete legal health record.[facility]
== END 2024-10-16 15:01 | disposition home or self-care (01) ==
LOC: HO.MAMMO 15:00
PROVIDERS: PCP Internal Medicine Medical Oncology; Visit Provider Internal Medicine Medical Oncology
DX: Z12.31 Encounter for screening mammogram for malignant neoplasm of breast (principal)
CPT/HCPCS: 77063; 77067

== ENCOUNTER → 2024-10-16 15:00 | Outpatient (BNV) | payer OTHER, SELFPAY | PROVIDERS: PCP Internal Medicine Medical Oncology; Visit Provider Internal Medicine | DX: Z12.31 Encounter for screening mammogram for malignant neoplasm of breast (principal) | CPT/HCPCS: 77063; 77067 ==

== ENCOUNTER 2024-12-25 10:21 | Outpatient (REF) | payer OTHER, SELFPAY ==
--- OUTSIDE RECORDS SUMMARY | 2013-03-27 01:00 | XMS_ITS | Encounter Summary ---
Author Organization [facility] Address [address] [place] [address] Phone Care Team Providers Care Transcriber Name Role Phone Unavailable Primary Care Provider Unavailabl e Encounter Details Date Type Department Care Team (Late st Contact Info) Description 03/27/2013 Hospital Encounter [facility],Outside Imaging [address], [place] [id number] System, Provider Not In, [place] [address] Social History Tobacco Use Types Packs/Day Years Used Date Smoking Tobacco: Never Smokeless Tobacco: Never Alcohol Use Standard Drinks/Week Comments Not Currently 0 (1 standard drink = 0.6 oz pur e alcohol) Rare one a month Education Answer Date Recorded Are you interested in more education? Not on margaret e 07/16/2022 Are you concerned about learning? Not on file 07/16/2022 No 07/16/2022 No 07/16/2022 Digital Access Answer Date Recorded No 08/17/2022 No 08/17/2022 Reliable internet access at home? Not on file 08/17/2022 Device with a working camera? Not on file Comments No Sex and Gender Information Value Date Recorded Sex Assigned at Female 11/07/2024 4:59 PM EDT Legal Sex Female 2:16 PM EDT Gender Identity Female 11/07/2024 4:59 PM EDT Sexual Orientation Straight 11/07/2024 4: 59 PM EDT documented as of this encounter Plan of Treatment Upcoming Encounters Date Type Department Care Team (Late st Contact Info) Description 10/25/2024 Procedure Pass [facility] [address] [place] [address] 01/18/2025 2:40 PM EDT Office Visit [facility] at [address] [address] Eros Krueger MD [address] [place] [address] [facility] [address] [address] [email or web address] 01/24/2025 3:15 PM EST Appointment [address] [address] Eros Krueger MD [address] [place] [address] [facility] [address] [address] [email or web address] documented as of this encounter Procedures Procedure Name Priority Date/Time Associated Diagnosis Comments BI MAMMOGRAM OUTSIDE (NO INTERPRETATION) Routine 03/27/2013 12:00 AM EST documented in this encounter Results * Mammogram Outside (No Interpretation) (03/27/2013 12:00 AM EST) Narrative SYSTEMGENERATED, DOCUMENTATION - 01/05/2018 3:47 PM EDT This study is for PACS storage only and not for interpretation. us Provider Not In System PhD IMG OUTSIDE IMAGING W /OUT INTERPRETATION Final Result documented in this encounter Visit Diagnoses Not on filedocumented in this encounter Additional Health Concerns Infection Onset Date Last Indicated Resolved Time CoV-Exposed Comment:Recent close contact documented in the Travel/Symptom Screening Form Entered in error, confirmed no exposure 11/16/2021 11/16/2021 11/16/2021 10:09 AM EDT documented as of this encounter Additional Source Comments The information contained in this document represents components of the legal health record. It is not the complete legal health record.[facility]
--- OUTSIDE RECORDS SUMMARY | 2024-10-30 06:05 | XMS_ITS ---
Author Organization Rufino John III, MD Address [address] [address] Care Team Providers Care Elementary Spanish Teacher Name Role Phone Dr. Rufino John III Primary Care Provider Reason For Referral Reason Second Opinion Que stioning Recurrent Endometrial Cancer interval development of 2 new nodules of the vaginal orifice seen on recent CT scan 08/31/24 Diagnosis 1 Endometrial cancer ( C54.1) Referral Organization Rufino John III, MD Referring Provider First Name Rufino Referring Provider Last Name Dora Referring Provider Speciality Internal M edicine Referred Provider [facility], [facility] [place] Referred Provider Specialty Gynecologic Oncology General Notes DShari 10/31/2024 10:34:05 AM > Referral, note from [facility] WOOD DRILL OPERATOR Oncology 09/09/[address] done on 08/31/24 faxed to [facility]., Shari Bauer 11/06/2024 11:11:01 AM > Insurance referral was faxed to [facility] WOOD DRILL OPERATOR Oncology. Patient was made aware she is able to call and schedule her appointment. Referral Priority Routine Referral Appointment Date 12/06/2024 REASON FOR VISIT 2nd Opinion Social History Sex Assigned At : Social History Observation Description Sex Assigned At Female Encounters Encounter Location Date Provider Diagnosis Rufino John III, MD [address] [place] [address] [place] [address] 10/30/2024 Rufino John Plan Of Treatment Referrals Referral Date Details 10/31/2024 10/31/2024, Second O julieth Questioning Recurrent Endometrial Cancer interval development of 2 new nodules of the vaginal orifice seen on recent CT scan 08/31/24, [facility] [place] [facility] Next Appt Details Provider Name:Rufino John , 06/25/2025 09:00:00 AM, [address] [facility] [address], [place], [address], Provider Name:Rufino John , 12/27/2025 09:30:00 AM, [address] [place] [address] [address], [place], [address], Progress Notes * BENTLEY HARTB:[birth year] (54 yo F)Acc No.[id number]:10/30/2024 Patient: RACHEL ALMARAZ :1970 A ge:54 Y S ex:Female Address:[address] [place] [address], [place] [address] Subjective: * Chief Complaints: * 2 nd Opinion * Medical History: * Surgical History: * Hospitalization/Major Diagno stic Procedure: * Medications: Objective: * Vitals: * Physical Examination: Assessment: Plan: * Treatment: * Procedure Codes: * true * Date: Generated for Naomy leyva/Yessy/Criselda on: 12:28 PM EDT Consultation Request Notes Referral Date Referring Provider Referred Provider Not es 10/31/2024 Rufino John [facility], [facility] Second Opinion Questioning Recurrent Endometrial Cancer interval development of 2 new nodules of the vaginal orifice seen on recent CT scan 08/31/24
--- OUTSIDE RECORDS SUMMARY | 2024-10-30 06:18 | XMS_ITS ---
Author Organization Rufino John III, MD Address [address] [place] [address] [place] [address] Care Team Providers Care Community Board Member Name Role Phone Dr. Rufino John III Primary Care Provider REASON FOR VISIT PA needed for pt Veozah Medications Medication SIG (Take, Route, Frequency, Duration) Notes Start Date End Date Status Veozah 45 MG 1 tablet Orally Once a day for 30 days 11/08/2023 Active Social History Sex Assigned At : Social History Observation Description Sex Assigned At Female Encounters Encounter Location Date Provider Diagnosis Rufino John III, MD [address] [place] [address] [address] [place] [address] 10/30/2024 Rufino John Plan Of Treatment Medication Medication Name Sig Start Date Stop Date Notes Veozah 45 MG 1 tablet Orally Once a day for 30 days 2023 Next Appt Details Provider Name:Rufino John , 06/25/2025 09:00:00 AM, [address] [place] [address] [place], [address], Provider Name:Rufino John , 12/27/2025 09:30:00 AM, [address] [place] [address] [place], [address], Progress Notes * ROLANDA HARTIDOB:[birth year] (54 yo F)Acc No.[id number]:10/30/2024 Patient: Ting RACHEL AVILA :1970 A ge:54 Y S ex:Female Address:[address] [place] [address] * Refills Refill Veozah Tablet, 45 MG, Orally, 30 Tablet, 1 tablet, Once a day, 30 days, Refills=11 * true * Date: Generated for Naomy leyva/Yessy/Criselda on: 12:27 PM EDT
--- OUTSIDE RECORDS SUMMARY | 2024-11-13 13:00 | XMS_ITS ---
Author Organization Rufino John III, MD Address [address] [place] [address] Care Team Providers Care Filing And Polishing Supervisor Name Role Phone Dr. Rufino John III Primary Care Provider REASON FOR VISIT New Concern Social History Sex Assigned At : Social History Observation Description Sex Assigned At Female Encounters Encounter Location Date Provider Diagnosis Rufino John III, MD [address] [place] [address] [place] [address] 11/13/2024 Rufino John Plan Of Treatment Next Appt Details Provider Name:Rufino John , 06/25/2025 09:00:00 AM, [address] [place] [address] [place], [address], Provider Name:Rufino John , 12/27/2025 09:30:00 AM, [address] [place] [address] [place], [address], Progress Notes * ROLANDA HARTIDOB:[birth year] (54 yo F)Acc No.[id number]:11/13/2024 Progress Notes Patient: SEAN ALMARAZITRI Provider: Ting John MD :1970 A ge:54 Y S ex:Female Date:11/13/2024 Address:[address] [place], [place] [id number] Subjective: * Chief Complaints: * 1 . New Concern. * Medical History: Objective: * Vitals: Assessment: Plan: * Treatment: * Images: * The named appointment provid er may or may not be the originator of this progress note, and it is not deemed complete until electronically signed by the appointment provider. Sign off status: Pending * Provider: Ting John MD Date: 0 11/13/2024 Generated for Naomy leyva/Yessy/Bijanitting on: 1 12:25 PM EDT
--- OUTSIDE RECORDS SUMMARY | 2024-12-11 13:00 | XMS_ITS ---
Author Organization Rufino John III, MD Address [address] [place] [address] [place] [address] Care Team Providers Care Dumpman Name Role Phone Dr. Rufino John III Primary Care Provider REASON FOR VISIT New Concern Social History Sex Assigned At : Social History Observation Description Sex Assigned At Female Encounters Encounter Location Date Provider Diagnosis Rufino John III, MD [address] [place] [address] [place] [address] 12/11/2024 Rufino John Plan Of Treatment Next Appt Details Provider Name:Rufino John , 06/25/2025 09:00:00 AM, [address] [place] [address] [place], [address], Provider Name:Rufino John , 12/27/2025 09:30:00 AM, [address] [place] [address] [place], [address], Progress Notes * ROLANDA HARTIDOB:[birth year] (54 yo F)Acc No.[id number]:12/11/2024 Progress Notes Patient: SEAN ALMARAZITRI Provider: Ting John MD :1970 A ge:54 Y S ex:Female Date:12/11/2024 Address:[address] [place], [place] [id number] Subjective: * Chief Complaints: * 1 . New Concern. * Medical History: Objective: * Vitals: Assessment: Plan: * Treatment: * Images: * The named appointment provid er may or may not be the originator of this progress note, and it is not deemed complete until electronically signed by the appointment provider. Sign off status: Pending * Provider: Ting John MD Date: 0 12/11/2024 Generated for Naomy leyva/Yessy/Bijanitting on: 1 12:27 PM EDT
--- OUTSIDE RECORDS SUMMARY | 2024-12-25 05:30 | XMS_ITS ---
Author Organization Rufino John III, MD Address [address] [place] [address] Care Team Providers Care Produce Assistant Name Role Phone Dr. Rufino John III Primary Care Provider [phone] Allergies Allergen (clinical drug ingredient) Drug/Non Drug Allergy documented on EMR Reaction Allergy Type Onset Date Status sulfacetamide Sulfacetamide rash Drug Allergy Active No Known Food Allergy Unknown Drug Allergy Active REASON FOR VISIT Annual Exam Medications Medication SIG (Take, Route, Frequency, Duration) Notes Start Date End Date Status Macrodantin 100 MG 1 capsule Orally twi ce a day 11/08/2023 Active Ergocalciferol 1.25 MG (56893 UT) 1 capsule Orally weekly 11/08/2023 Acti ve Veozah 45 MG 1 tablet Orally Once a day 11/08/2023 Active Social History Tobacco Use: Social History Observation Description Date Details (start date - stop date) Never Smoker NA - NA Sex Assigned At : Social History Observation Description Sex Assigned At Female Tobacco Use/Smoking Question Answer Notes Patient is a nonsmoker Additional Findings: Tobacco Non-User Aggressive non-smoker Vital Signs Temperature 98.2 degrees Fahrenheit 12/26/19 25 Blood pressure systolic 119 mm Hg 12/26/19 25 Blood pressure diastolic 80 mm Hg 025 Heart Rate 69 /min 12/25/2024 Height 64.75 in 12/25/2024 Weight 125 lbs 12/25/2024 BMI 20.96 kg/m2 12/25/2024 Encounters Encounter Location Date Provider Diagnosis Rufino John III, MD [address] [place] [address] [place] [address] 12/25/2024 Rufino John Endometrial cancer C54.1 ; Teresa's thyroiditis E06.3 ; Vitamin D deficiency E55.9 and Elevated blood pressure, situational R03.0 Assessments Encounter Date Diagnosis (ICD Code) Assessment Notes Treat ment Notes Treatment Clinical Notes 12/25/2024 Endometrial cancer (ICD-10 - C54.1) 12/25/2024 Teresa's thyroiditis (ICD-10 - E06.3) 12/25/2024 Vitamin D deficiency (ICD-10 - E55.9) 12/25/2024 Elevated blood pressure, situational (ICD-10 - R03.0) Plan Of Treatment Medication Medication Name Sig Start Date Stop Date Notes Macrodantin 100 MG 1 capsule Orally twi ce a day 11/08/2023 Ergocalciferol 1.25 MG (60244 UT) 1 capsule Orally weekly 11/08/2023 Veozah 45 MG 1 tablet Orally Once a day 11/08/2023 Pending Test Test Name Order Date PROFILE, FASTING (COMPREHENSIVE METABOLI C) 12/25/2024 TSH (THYROID STIMULATING HORMONE) 2024 CBC w DIFF 12/25/2024 Lipid Panel 12/25/2024 Vitamin D 25-OH Total 12/25/2024 Free T4 (Free Thyroxine) 12/25/2024 Next Appt Details Follow Up: 6 Months,follow u p, Reason: hypertension Provider Name:Rufino John , 06/25/2025 09:00:00 AM, [address] [place] [address] [address], [place], [address], Provider Name:Rufino John , 12/27/2025 09:30:00 AM, [address] [place] [address] [place], [address], Progress Notes * BENTLEY HARTB:[birth year] (54 yo F)Acc No.[id number]:12/25/2024 Progress Notes Patient: RACHEL ALMARAZ Provider: Ting John MD :1970 A ge:54 Y S ex:Female Date:12/25/2024 Address:[address] [place] [address] Subjective: * Chief Complaints: * 1 . Annual Exam. * HPI: D epression Screening: PHQ-9 L ittle interest or pleasure in doing things?Not at all F eeling down, depressed, or hopeless S everal days T rouble falling or staying asleep, or sleeping too much S everal days F eeling tired or having little energy S everal days P oor appetite or overeating N ot at all F eeling bad about yourself or that you are a failure, or have let yourself or your family down N ot at all T rouble concentrating on things, such as reading the newspaper or watching television N ot at all M oving or speaking so slowly that other people could have noticed; or the opposite, being so fidgety or restless that you have been moving around a lot more than usual N ot at all T houghts that you would be better off or of hurting yourself in some way N ot at all T otal Score 3 I nterpretation M inimal Depression C OVID-19 Screenincd opinion at [facility] dr adonis العراقي, remembered you, mother pe [facility] [place], blew her off, ? mri q 3 months, try to radiate. Questions H ave you had any new onset fever, chills, cough, congestion, sore throat, shortness of breath, muscle aches? N o S KRYSTLE Questions: SDOH Questions I n the past year have you been worried about losing your housing? N o I n the past year have you or any family members you live with been unable to get any of the following when it was really needed? Check all that apply: N one * ROS: G eneral/Constitutional: pain o nly normal aches and pains. C hills d enies.?Fatigue a dmits. F ever d enies. E [...] Depressed mood d enies. * Medical History: E ndometrial cancer, surgery, [facility], Surgery and radiation, in remission, Cervical radiculopathy, Hypothyroid, , Sulfa allergy, History of MRSA, History of vancomycin-resistant enterococcus, Anterior tibialis syndrome left ankle, Dr. Farrell, [facility] in September 2023, Seasonal allergies, Internal hemorrhoids, Postmenopausal with symptoms, Postcoital urinary tract infection, Osteopenia, Elevated blood pressures, Thyroiditis in childhood. * Surgical History: T onsilectomy , x 2 2004, 2006, Abdominal Hysterectomy, Bilateral Salpingectomy, Gibson lymph node biopsy 2022, Colonoscopy, Dr. Villa, [facility], hyperplastic polyp and internal hemorrhoids G , MAINFRAME ARCHITECT in [facility] . * Hospitalization/Major Diagno stic Procedure: D enies Past Hospitalization. * Family History: F ather: alive, prostate cancer, diagnosed with Cancer, DM, HTN, Hyperlipidemia. M other: alive, diagnosed with DM, HTN. 1 brother(s) , 1 sister(s) . 1 [...] History: T obacco Use: T obacco Use/Smoking Nati martinez is a n onsmoker A dditional Findings: Tobacco Non-User A ggressive non-smoker H er father is a diplomat from [place]. She was born in [place] and then lived in [place] and then in [place] where her father works the [employer]. She then moved to [place] [facility]. She attended medical school at [employer]. He'll be in [place]. She is with 2 children. Her is [place] and is unemployed. Her son Bret is 19 in her daughter, Marlene is 16. They are healthy and well. They're both in college. She is working part-time at [employer] and part-time at [employer] in [place].Her spouse's name is Jose Larry. She has no latter day objection to blood transfusion. She is a nonsmoker. Her father is from [place] and her mother is [place]. * Medications: T aking Ergocalciferol 1.25 MG (43818 UT) Capsule 1 capsule Orally weekly , Taking Macrodantin 100 MG Capsule 1 capsule Orally twice a day , Taking Veozah 45 MG Tablet 1 tablet Orally Once a day , Medication List reviewed and reconciled with the patient * Allergies: S ulfacetamide: rash - Allergy, No Known Food Allergy. Objective: * Vitals: H t: 64.75, Wt: 125, BMI:20.96, BP: 119/80, HR: 69, Temp: 98.2, Ht-cm: 164.47, Wt- k.7. * Examination: G eneral Examination: GENERAL APPEARANCE: [...] LUNGS: c lear to auscultation . BREASTS: no masses palpable bilaterally. ABDOMEN: b owel sounds normal, no ascites, [...] Assessment: 1. E ndometrial cancer - C54.1 2 . H ashimoto's thyroiditis - E06.3 ? 3 . V itamin D deficiency - E55.9 4 . E levated blood pressure, situational - R03.0 Plan: * Treatment: 2. H ashimoto's thyroiditis L AB: PROFILE, FASTING (COMPREHENSIVE METABOLIC) L AB: TSH (THYROID STIMULATING HORMONE) L AB: CBC w DIFF L AB: Lipid Panel L AB: Vitamin D 25-OH Total L AB: Free T4 (Free Thyroxine) 3. V itamin D deficiency L AB: PROFILE, FASTING (COMPREHENSIVE METABOLIC) L AB: TSH (THYROID STIMULATING HORMONE) L AB: CBC w DIFF L AB: Lipid Panel L AB: Vitamin D 25-OH Total L AB: Free T4 (Free Thyroxine) 4. E levated blood pressure, situational L AB: PROFILE, FASTING (COMPREHENSIVE METABOLIC) L AB: TSH (THYROID STIMULATING HORMONE) L AB: CBC w DIFF L AB: Lipid Panel L AB: Vitamin D 25-OH Total L AB: Free T4 (Free Thyroxine) 5. O thers Continue Veozah Tablet, 45 MG, 1 tablet, Orally, Once a day; C ontinue Ergocalciferol Capsule, 1.25 MG (95727 UT), 1 capsule, Orally, weekly; C ontinue Macrodantin Capsule, 100 MG, 1 capsule, Orally, twice a day. * Follow Up: 6 Months,follow up (Reason: hypertension) * Images: * The named appointment provid er may or may not be the originator of this progress note, and it is not deemed complete until electronically signed by the appointment provider. Sign off status: Pending * Provider: Ting John MD Date: Generated for Naomy leyva/Yessy/Criselda on: 12:27 PM EDT History and Physical Notes * HPI (History of Present Illness) Category Sub-Category Detail Notes Depression Screening PHQ-9 Little inte rest or pleasure in doing things: Not at all Feeling down, depressed, or hopeless: Se veral days Trouble falling or staying asleep, or sl eeping too much: Several days Feeling tired or having little energy: S everal days Poor appetite or overeating: Not at all Feeling bad about yourself o r that you are a failure, or have let yourself or your family down: Not at all Trouble concentrating on thi ngs, such as reading the newspaper or watching television: Not at all Moving or speaking so slowly that other people could have noticed; or the opposite, being so fidgety or restless that you have been moving around a lot more than usual: Not at all Thoughts that you would be b phong off or of hurting yourself in some way: Not at all Total Score: 3 Interpretation: Minimal Depression COVID-19 Screening Questions Have you had any new onset fever, chills, cough, congestion, sore throat, shortness of breath, muscle aches?: No SDOH Questions SDOH Questions In the past year have you been worried about losing your housing?: No In the past year have you or any family members you live with been unable to get any of the following when it was really needed? Check all that apply:: None Examination Category Sub-Category Detail Notes General Examination [...] PULSES: normal BREASTS: no masses palpable b ilaterally MUSCULOSKELETAL: extremities unremark able, no clubbing, cyanosis or edema LYMPH NODES: no enlarged lymph no basim,spleen normal RECTAL EXAM: not examined PSYCH: alert, oriented ORAL CAVITY: normal, unremarkable
[2024-12-25 10:55] LABS: MANUAL DIFF FLAG NO
[2024-12-25 11:06] LABS: Hematocrit 44.2 % (37.0-47.0); Hemoglobin 13.8 g/dl (12.0-16.0); Imm Gran Abs Auto 0.01 X10*3/uL (0.00-0.03); Imm Gran Pct Auto 0.2 % (0.0-0.4); Lymphocytes Absolute Auto 1.7 X10*3/uL (1.2-4.9); Mean Corpuscular HGB Conc 31.2 g/dl (31.0-35.0); Mean Corpuscular Hemoglobin 24.8 pg (27.0-33.0); Mean Corpuscular Volume 79.5 fL (80.0-98.0); NRBC Abs Auto 0.000 X10*3/uL (0.0-0.012); NRBC Pct Auto 0.0 /100WBC (0.0-0.2); Platelet Count 246 X10*3/uL (160-400); Red Blood Count 5.56 X10*6/uL (4.20-5.50); White Blood Count 4.8 X10*3/uL (4.8-10.8)
[2024-12-25 12:18] LABS: Alanine Aminotransferase 17 U/L (0-31); Albumin Level 4.4 g/dL (3.5-5.0); Alkaline Phosphatase 88 U/L (39-117); Anion Gap 11 (12-20); Aspartate Amino Transferase 21 U/L (5-31); Blood Urea Nitrogen 14 mg/dL (9-16); Calcium 9.5 mg/dL (8.4-10.2); Carbon Dioxide 30 mmol/L (22-29); Chloride 106 mmol/L (96-108); Cholesterol 208 mg/dL (<200); Estimated Glomerular Filt Rate > 60; HDL Cholesterol 45 mg/dL (>40); Potassium 4.2 mmol/L (3.3-5.1); Sodium 143 mmol/L (135-145); Total Protein 7.9 g/dL (6.5-8.0); Triglycerides 103 mg/dL (<150)
--- OUTSIDE RECORDS SUMMARY | 2024-12-25 12:25 | XMS_ITS | Encounter Summary ---
Author Organization [facility] Address [address] [place] [address] Phone Care Team Providers Care Dedicated Driver Name Role Phone Unknown, Unknown Primary Care Provider Mary Cazares MD Primary [facility] Provider [facility] Unavailable [phone] Self-Referred, Patient Unavailable Unavailab Jonathan Díaz NP Primary Care Provider + Rufino John MD Primary Care Provider [phone] Jesse Moore MD Unavailable [phone] Encounter Details Date Type Department Care Team (Late st Contact Info) Description 01/03/2018 Ancillary Orders [facility] Department [address] [place] [address] System, Provider Not In, [facility] [address] [address] Breast screening Social History Tobacco Use Types Packs/Day Years [...] st Contact Info) Description 10/25/2024 Procedure Pass [address] [address] 01/18/2025 2:40 PM EDT Office Visit [facility] at [address] [address] Eros Krueger MD [address] [place] [address] Obstetrics and Gynecology ServiceYA [address] [place] [address] [email or web address] 01/24/2025 3:15 PM EST Appointment [address] [address] Eros Krueger MD [address] [place] [address] Obstetrics and Gynecology Service[facility] [address] [address] [email or web address] documented as of this encounter Visit Diagnoses Diagnosis Breast screening Breast screening, unspecified documented in this encounter Additional Health Concerns Infection Onset Date Last Indicated Resolved Time CoV-Exposed Comment:Recent close contact documented in the Travel/Symptom Screening Form Entered in error, confirmed no exposure 11/16/2021 11/16/2021 11/16/2021 10:09 AM EDT documented as of this encounter Care Teams Dedicated Driver Relationship Specialty Start Date End Date Unknown, Unknown, MD PCP - General 01/03/18 01/14/20 Mary Romero MD [address] [place] [address] PCP - General Internal Medicine 01/15/20 03/21/23 Jonathan Boudreaux NP [address] [place] [address] [place] [address] PCP - General Nurse Practitioner 03/22/23 10/24/23 Rufino John MD [address] [place] [address] [place] [address] PCP - General Medical Oncology 10/25/23 Eros Krueger MD [address] [place] [address] Obstetrics and Gynecology ServiceYAW [address] [place] [address] [email or web address] [email or web address] Oncology 10/12/21 Self-Referred, Patient 01/13/22 Jesse Moore MD [address] [place] [address] [address] [place] [address] [email or web address] Radiation Oncology 08/14/24 documented as of this encounter Additional Source Comments The information contained in this document represents components of the legal health record. It is not the complete legal health record.[facility]
--- OUTSIDE RECORDS SUMMARY | 2024-12-25 12:25 | XMS_ITS | Encounter Summary ---
Author Organization [facility] Address [address] [place] [address] Phone Care Team Providers Care Director Of Strategic Communications Name Role Phone Unknown, Unknown Primary Care Provider Mary Cazares MD Primary Care Provider EvansEros cox MD Unavailable [phone] Self-Referred, Patient Unavailable Unavailab Jonathan Díaz NP Primary Care Provider + Rufino John MD Primary Care Provider [phone] Jesse Moore MD Unavailable [phone] Encounter Details Date Type Department Care Team (Late st Contact Info) Description 01/05/2018 Ancillary Orders [facility] [address] [place] [address] System, Provider [place] In, [place] [address] Social History Tobacco Use Types Packs/Day Years [...] st Contact Info) Description 10/25/2024 Procedure Pass [address] [address] 01/18/2025 2:40 PM EDT Office Visit [facility] at [address] [address] Eros Krueger MD [address] [place] [address] Obstetrics and Gynecology ServiceYA [address], [place] [address] [email or web address] 01/24/2025 3:15 PM EST Appointment [address] [address] Eros Krueger MD [address] [place] [address] Obstetrics and Gynecology ServiceYA[address] [address] [email or web address] documented as of this encounter Results * Mammogram Outside (No Interpretation) (09/30/2016 12:00 AM EDT) Narrative SYSTEMGENERATED, DOCUMENTATION - 01/05/2018 3:49 PM EDT This study is for PACS [...] documented as of this encounter Care Teams Director Of Strategic Communications Relationship Specialty Start Date End Date Unknown, Unknown, MD PCP - General 01/03/18 01/14/20 Mary Romero MD [address] [place] [address] PCP - General Internal Medicine 01/15/20 03/21/23 Jonathan Boudreaux NP [address] [place] [address] [place] [address] PCP - General Nurse Practitioner 03/22/23 10/24/23 Rufino John MD [address] [place] [address] [place] [address] PCP - General Medical Oncology 10/25/23 Eros Krueger MD [address] [place] [address] Obstetrics and Gynecology ServiceYAW [address] [place] [address] [email or web address] Gynecologic Oncology 10/12/21 Self-Referred, Patient 01/13/22 Jesse Moore MD [address] [place] [address] [address] [place] [address] [email or web address] Radiation Oncology 08/14/24 documented as of this encounter Additional Source Comments The information contained in this document represents components of the legal health record. It is not the complete legal health record.[facility]
--- OUTSIDE RECORDS SUMMARY | 2024-12-25 12:25 | XMS_ITS | Encounter Summary ---
Author Organization [facility] Address [address] [facility] [address] [place] [address] Phone Care Team Providers Care Assembly Line Brazer Name Role Phone Unknown, Unknown Primary Care Provider Mary Cazares MD Primary Care Provider EvansEros cox MD Unavailable [phone]- [phone] Self-Referred, Patient Unavailable Unavailab Jonathan Díaz NP Primary Care Provider + Rufino John MD Primary Care Provider +[phone]- [phone] Jesse Moore MD Unavailable [phone] Encounter Details Date Type Department Care Team (Late st Contact Info) Description 01/05/2018 Ancillary Orders [facility],Outside [facility] [address] [place] [address] System, Provider Not In, [place] [address] Social History Tobacco Use Types Packs/Day Years [...] st Contact Info) Description 10/25/2024 Procedure Pass [address] [address] 01/18/2025 2:40 PM EDT Office Visit [facility] at [address] [address] Eros Krueger MD [address] [place] [address] Obstetrics and Gynecology ServiceYA [place] [address] Timothy@[email or web address] 01/24/2025 3:15 PM EST Appointment [address] [address] Eros Krueger MD [address] [place] [address] Obstetrics and Gynecology Service[address] [address] [email or web address] documented as of this encounter Results * [...] documented as of this encounter Care Teams Assembly Line Brazer Relationship Specialty Start Date End Date Unknown, Unknown, MD PCP - General 01/03/18 01/14/20 Mary Romero MD [address] [place] [address] PCP - General Internal Medicine 01/15/20 03/21/23 Jonathan Boudreaux NP [address] [place] [address] [place] [address] PCP - General Nurse Practitioner 03/22/23 10/24/23 Rufino John MD [address] [place] [address] [place] [address] PCP - General Medical Oncology 10/25/23 Eros Krueger MD [address] [place] [address] Obstetrics and Gynecology ServiceYAW [address] [place] [address] [email or web address] Gynecologic Oncology 10/12/21 Self-Referred, Patient 01/13/22 Jesse Moore MD [address] [place] [address] 3 [place] [address] KORI@[email or web address] Radiation Oncology 08/14/24 documented as of this encounter Additional Source Comments The information contained in this document represents components of the legal health record. It is not the complete legal health record.[facility]
--- OUTSIDE RECORDS SUMMARY | 2024-12-25 12:25 | XMS_ITS | Encounter Summary ---
Author Organization [facility] Address [address] [facility] [address] [place] [address] Phone Care Team Providers Care Payroll Services Analyst Name Role Phone Unknown, Unknown Primary Care Provider Mary Cazares MD Primary Care Provider EvansEros cox MD Unavailable [phone]- [phone] Self-Referred, Patient Unavailable Unavailab Jonathan Díaz NP Primary Care Provider + Rufino John MD Primary Care Provider [phone]- [phone] Jesse Moore MD Unavailable [phone] Encounter Details Date Type Department Care Team (Late st Contact Info) Description 03/09/2018 Ancillary Orders [address] [address] Self-Referred, Patient Breast screening Social History Tobacco Use Types Packs/Day Years Used Date Smoking Tobacco: Never Assessed Comments No Sex and Gender Information Value Date Recorded Sex Assigned at Female 11/07/2024 4:59 PM EDT Legal Sex Female 2:16 PM EDT Gender Identity Female 11/07/2024 4:59 PM EDT Sexual Orientation Straight 11/07/2024 4: 59 PM EDT documented as of this encounter Plan of Treatment Upcoming Encounters Date Type Department Care Team (Late st Contact Info) Description 10/25/2024 Procedure Pass [address] [address] 01/18/2025 2:40 PM EDT Office Visit [facility] at [address] [address] Eros Krueger MD [address] [place] [address] Obstetrics and Gynecology ServiceYAW [address] [address] Timothy@[email or web address] 01/24/2025 3:15 PM EST Appointment [facility], [facility] [address] [place] [address] Eros Krueger MD [address] [place] [address] Obstetrics and Gynecology ServiceYAW [address] [place] [address] Timothy@[email or web address] documented as of this encounter Results * BI MAMMOGRAM SCREENING WITH TOMOSYNTHESIS WITH CAD (BILATERAL) (03/07/2018 4:01 PM EST) Anatomical Region Laterality Modality Breast Left, Breast Right, Breast Bilateral Bila teral Mammography Impressions 03/08/2018 4:39 PM EST No mammographic signs of malignancy. Annual screening is recommended. BI-RADS CATEGORY: 1 - Negative. DENSITY: The breast tissue is heterogeneously dense, an appearance which lowers the sensitivity of mammography. POS - [id number] Narrative 03/08/2018 4:39 PM EST Bilateral mammography is performed in conjunction with computed aided detection. 3-D tomography along with 2-D C view imaging was also performed. Comparison made to previous dated as far back as 03/27/2013 and as recent as 09/30/2016. No suspicious masses, areas of architectural distortion or suspicious microcalcifications. us Patient Self-Referred IMG MG EXAMS Edited Res ult - Final documented in this encounter Visit Diagnoses Diagnosis Breast screening Breast screening, unspecified Breast screening Breast screening, unspecified documented in this encounter Additional Health Concerns Infection Onset Date Last Indicated Resolved Time CoV-Exposed Comment:Recent close contact documented in the Travel/Symptom Screening Form Entered in error, confirmed no exposure 11/16/2021 11/16/2021 11/16/2021 10:09 AM EDT documented as of this encounter Care Teams Payroll Services Analyst Relationship Specialty Start Date End Date Unknown, Unknown, MD PCP - General 01/03/18 01/14/20 Mary Romero MD [address] [place] [address] PCP - General Internal Medicine 01/15/20 03/21/23 Jonathan Boudreaux NP [address] [place] [address] [place] [address] PCP - General Nurse Practitioner 03/22/23 10/24/23 Rufino John MD [address] [place] [address] [place] [address] PCP - General Medical Oncology 10/25/23 Eros Krueger MD [address] [place] [address] Obstetrics and Gynecology ServiceYAW [address] [place] [address] [email or web address] U Gynecologic Oncology 10/12/21 Self-Referred, Patient 01/13/22 Jesse Moore MD [address] [place] [address] 3 [place] [address] KORI@[email or web address].[facility] Radiation Oncology 08/14/24 documented as of this encounter Additional Source Comments The information contained in this document represents components of the legal health record. It is not the complete legal health record.[facility]
--- OUTSIDE RECORDS SUMMARY | 2024-12-25 12:25 | XMS_ITS | Encounter Summary ---
Author Organization [facility] Address [address] [facility] [address] [place] [address] Phone Care Team Providers Care Gin Operator Name Role Phone Mary Romero MD Primary Care Provider EvansEros cox MD Unavailable [phone]- [phone] Self-Referred, Patient Unavailable Unavailab Jonathan Díaz NP Primary Care Provider + Rufino John MD Primary Care Provider [phone]- [phone] Jesse Moore MD Unavailable [phone] Encounter Details Date Type Department Care Team (Late st Contact Info) Description 01/15/2020 Ancillary Orders [facility] Department [address] [place] [address] Mary Romero MD [address] [place] [address] Breast screening Social History Tobacco Use Types [...] st Contact Info) Description 10/25/2024 Procedure Pass [address] [address] 01/18/2025 2:40 PM EDT Office Visit [facility] at [address] [address] Eros Krueger MD [address] [place] [address] Obstetrics and Gynecology ServiceYAW 9E [place] [address] Timothy@[email or web address] 01/24/2025 3:15 PM EST Appointment [address] [address] Eros Krueger MD [address] [place] [address] Obstetrics and Gynecology ServiceYAW [address] [place] [address] Timothy@[facility] documented as of this encounter Results * BI MAMMOGRAM SCREENING WITH TOMOSYNTHESIS WITH CAD (BILATERAL) (02/25/2020 11:40 AM EST) Anatomical Region Laterality Modality Breast Left, Breast Right, Breast Bilateral Bila teral Mammography 02/25/2020 12:0 5 PM EST Impressions 02/25/2020 12:14 PM EST No mammographic signs of malignancy. Annual screening is recommended. BI-RADS CATEGORY: 2 - Benign finding. DENSITY: The breast tissue is heterogeneously dense, which could obscure a lesion on mammography. Narrative 02/25/2020 12:14 PM EST Bilateral mammography is performed in conjunction with computed aided detection. 3-D tomography along with 2-D C view imaging was also performed. Comparison made to previous dated as far back as 03/27/2013 and as recent as 03/07/2018. No suspicious masses, areas of architectural distortion or suspicious microcalcifications. Bilateral lymph nodes in the each axilla. These have benign appearances and appears symmetric. Procedure Note Rory Grimaldo MD - 02/25/2020 Bilateral mammography is performed in conjunction with computed aideddetection. 3-D tomography along with 2-D C view imaging was alsoperformed. Comparison made to previous dated as far back as 03/27/2013 andas recent as 03/07/2018. No suspicious masses, areas of architectural distortion or suspiciousmicrocalcifications. Bilateral lymph nodes in the each axilla. These havebenign appearances and appears symmetric. IMPRESSION: No mammographic signs of malignancy. Annual screening is recommended. BI-RADS CATEGORY: 2 - Benign finding. DENSITY: The breast tissue is heterogeneously dense, which could obscurea lesion on mammography. Mary Romero MD IMG MG EXAMS Final R esult documented in this encounter Visit Diagnoses Diagnosis Breast screening Breast screening, unspecified Breast screening Breast screening, unspecified documented in this encounter Additional Health Concerns Infection Onset Date Last Indicated Resolved Time CoV-Exposed Comment:Recent close contact documented in the Travel/Symptom Screening Form Entered in error, confirmed no exposure 11/16/2021 11/16/2021 11/16/2021 10:09 AM EDT documented as of this encounter Care Teams Gin Operator Relationship Specialty Start Date End Date Mary Romero MD [address] [place] [address] PCP - General Internal Medicine 01/15/20 03/21/23 Jonathan Boudreaux NP [address] [place] [address] [place] [address] PCP - General Nurse Practitioner 03/22/23 10/24/23 Rufino John MD [address] [place] [address] [place] [address] PCP - General Medical Oncology 10/25/23 Eros Krueger MD [address] [place] [address] Obstetrics and Gynecology ServiceYAW 9E [place] [address] [email or web address] Gynecologic Oncology 10/12/21 Self-Referred, Patient 01/13/22 Jesse Moore MD [address] [facility] [address] [place] [address] KORI@[email or web address] Radiation Oncology 08/14/24 documented as of this encounter Additional Source Comments The information contained in this document represents components of the legal health record. It is not the complete legal health record.[facility]
--- OUTSIDE RECORDS SUMMARY | 2024-12-25 12:27 | XMS_ITS | Encounter Summary ---
Author Organization [facility] Address [address] [facility] [address] [place] [address] Phone Care Team Providers Care Physicist Light And Optics Name Role Phone Mary Romero MD Primary Care Provider EvansEros cox MD Unavailable [phone]- [phone] Self-Referred, Patient Unavailable Unavailab Jonathan Díaz NP Primary Care Provider + Rufino John MD Primary Care Provider [phone]- [phone] Jesse Moore MD Unavailable [phone] Encounter Details Date Type Department Care Team (Late st Contact Info) Description 12/15/2021 Procedure [facility], Ct Scan [address] [address] Social History Tobacco Use Types Packs/Day Years Used Date Smoking Tobacco: Never Smokeless Tobacco: Never Alcohol Use Standard Drinks/Week Comments Not Currently 0 (1 standard drink = 0.6 oz pur e alcohol) Rare one a month Comments No Sex and Gender Information Value Date Recorded Sex Assigned at Female 11/07/2024 4:59 PM EDT Legal Sex Female 2:16 PM EDT Gender Identity Female 11/07/2024 4:59 PM EDT Sexual Orientation Straight 11/07/2024 4: 59 PM EDT documented as of this encounter Plan of Treatment Upcoming Encounters Date Type Department Care Team (Late st Contact Info) Description 10/25/2024 Procedure Pass [address] [address] 01/18/2025 2:40 PM EDT Office Visit [facility] at [address] [address] Erso Krueger MD [address] [place] [address] Obstetrics and Gynecology Service[address] [address] Timothy@[email or web address] 01/24/2025 3:15 PM EST Appointment [address] [address] Eros Krueger MD [address] [place] [address] Obstetrics and Gynecology [address] [address] Timothy@[email or web address] documented as of this encounter Visit Diagnoses Not on filedocumented in this encounter Care Teams Physicist Light And Optics Relationship Specialty Start Date End Date Mary Romero MD [address] [place] [address] PCP - General Internal Medicine 01/15/20 03/21/23 Jonathan Boudreaux NP [address] [place] [address] [place] [address] PCP - General Nurse Practitioner 03/22/23 10/24/23 Rufino John MD [address] [place] [address] [place] [address] PCP - General Medical Oncology 10/25/23 Eros Krueger MD [address] [place] [address] Obstetrics and Gynecology ServiceYAW [address] [place] [address] Timothy@[email or web address].[email or web address].ED U Gynecologic Oncology 10/12/21 Self-Referred, Patient 01/13/22 Jesse Moore MD [address] [place] [address] KORI@[email or web address] Radiation Oncology 08/14/24 documented as of this encounter Additional Source Comments The information contained in this document represents components of the legal health record. It is not the complete legal health record.[facility]
--- OUTSIDE RECORDS SUMMARY | 2024-12-25 12:27 | XMS_ITS | Encounter Summary ---
Author Organization [facility] Address [address] [facility] [address] [place] [address] Phone Care Team Providers Care Certified Lactation Educator Name Role Phone Eros Krueger MD Unavailable [phone]- [phone] Self-Referred, Patient Unavailable Unavailab Rufino La MD Primary Care Provider [phone]- [phone] Jesse Moore MD Unavailable [phone] Encounter Details Date Type Department Care Team (Late st Contact Info) Description 08/17/2024 Procedure Pass [facility], Ct Scan - [address] [id number] Social History Tobacco Use Types Packs/Day Years [...] st Contact Info) Description 10/25/2024 Procedure Pass [address] [address] 01/18/2025 2:40 PM EDT Office Visit [facility] at [address] [address] Eros Krueger MD [address] [facility] Obstetrics and Gynecology Service[address] [address] Timothy@[email or web address] 01/24/2025 3:15 PM EST Appointment [address] [address] Eros Krueger MD [address] [place] [address] Obstetrics and Gynecology ServiceYAW [address] [place] [address] Timothy@[email or web address] documented as of this encounter Visit Diagnoses Not on filedocumented in this encounter Care Teams Certified Lactation Educator Relationship Specialty Start Date End Date Rufino John MD [address] [place] [address] [place] [address] PCP - General Medical Oncology 10/25/23 Eros Krueger MD [address] [facility] Obstetrics and Gynecology ServiceYAW 9E [place] [address] [email or web address] U Gynecologic Oncology 10/12/21 Self-Referred, Patient 01/13/22 Jesse Moore MD [address] [address] KORI@[email or web address] Radiation Oncology 08/14/24 documented as of this encounter Additional Source Comments The information contained in this document represents components of the legal health record. It is not the complete legal health record.[facility]
--- OUTSIDE RECORDS SUMMARY | 2024-12-25 12:27 | XMS_ITS | Encounter Summary ---
Author Organization [facility] Address [address] [facility] [address] [place] [address] Phone Care Team Providers Care Braid Cutter Name Role Phone Mary Romero MD Primary Care Provider EvansEros cox MD Unavailable [phone]- [phone] Self-Referred, Patient Unavailable Unavailab Jonathan Díaz NP Primary Care Provider + Rufino John MD Primary Care Provider [phone]- [phone] Jesse Moore MD Unavailable [phone] Encounter Details Date Type Department Care Team (Late st Contact Info) Description 12/15/2021 Procedure [facility], Ct Scan [address] [address] Social History Tobacco Use Types Packs/Day Years [...] st Contact Info) Description 10/25/2024 Procedure Pass [address] [address] 01/18/2025 2:40 PM EDT Office Visit [facility] at [address] [address] Eros Krueger MD [address] [place] [address] Obstetrics and Gynecology Service[address] [address] Timothy@[email or web address] 01/24/2025 3:15 PM EST Appointment [address] [address] Eros Krueger MD [address] [place] [address] Obstetrics and Gynecology Service[address] [address] Timothy@[facility] documented as of this encounter Visit Diagnoses Not on filedocumented in this encounter Care Teams Braid Cutter Relationship Specialty Start Date End Date Mary Romero MD [address] [place] [address] PCP - General Internal Medicine 01/15/20 03/21/23 Jonathan Boudreaux NP [address] [place] [address] [place] [address] PCP - General Nurse Practitioner 03/22/23 10/24/23 Rufino John MD [address] [place] [address] [place] [address] PCP - General Medical Oncology 10/25/23 Eros Krueger MD [address] [place] [address] Obstetrics and Gynecology ServiceYAW [address] [place] [address] [email or web address] U Gynecologic Oncology 10/12/21 Self-Referred, Patient 01/13/22 Jesse Moore MD [address] [place] [address] KORI@[email or web address].[email or web address].[email or web address] Radiation Oncology 08/14/24 documented as of this encounter Additional Source Comments The information contained in this document represents components of the legal health record. It is not the complete legal health record.[facility]
--- OUTSIDE RECORDS SUMMARY | 2024-12-25 12:27 | XMS_ITS | Encounter Summary ---
Author Organization [facility] Address [address] [facility] [address] [place] [address] Phone Care Team Providers Care Defensive Line Coach Name Role Phone Mary Romero MD Primary Care Provider Eros Krueger MD Unavailable [phone]- [phone] Self-Referred, Patient Unavailable Unavailab Jonathan Díaz NP Primary Care Provider + Rufino John MD Primary Care Provider [phone]- [phone] Jesse Moore MD Unavailable [phone] Encounter Details Date Type Department Care Team (Late st Contact Info) Description 02/22/2022 Radiation Completion Encounter [facility] Dept of Radiation Oncology [address] [address] Jesse Moore MD [address] [place] [address] KORI@[email or web address] Social History Tobacco Use Types Packs/Day Years [...] st Contact Info) Description 10/25/2024 Procedure Pass [facility], [address] [address] 01/18/2025 2:40 PM EDT Office Visit [facility] at [address] [address] Eros Krueger MD [address] [place] [address] Obstetrics and Gynecology Service[address] [address] Timothy@[facility] 01/24/2025 3:15 PM EST Appointment [address] [address] Eros Krueger MD [address] [place] [address] Obstetrics and Gynecology Service[address] [address] Timothy@[facility] documented as of this encounter Visit Diagnoses Not on filedocumented in this encounter Care Teams Defensive Line Coach Relationship Specialty Start Date End Date Mary Romero MD [address] [place] [address] PCP - General Internal Medicine 01/15/20 03/21/23 Jonathan Boudreaux NP [address] [place] [address] [place] [address] PCP - General Nurse Practitioner 03/22/23 10/24/23 Rufino John MD [address] [place] [address] [place] [address] PCP - General Medical Oncology 10/25/23 Eros Krueger MD [address] [place] [address] Obstetrics and Gynecology ServiceYAW 9E [place] [address] Timothy@[email or web address]. U Gynecologic Oncology 10/12/21 Self-Referred, Patient 01/13/22 Jesse Moore MD [address] [place] [address] 3 [place] [address] KORI@[email or web address] Radiation Oncology 08/14/24 documented as of this encounter Additional Source Comments The information contained in this document represents components of the legal health record. It is not the complete legal health record.[facility]
--- OUTSIDE RECORDS SUMMARY | 2024-12-25 12:27 | XMS_ITS | Encounter Summary ---
Author Organization [facility] Address [address] [facility] [address] [place] [address] Phone Care Team Providers Care Obstetrics Nurse Practitioner Name Role Phone Eros Krueger MD Unavailable [phone]- [phone] Self-Referred, Patient Unavailable Unavailab Rufino La MD Primary Care Provider [phone]- [phone] Jesse Moore MD Unavailable [phone] Encounter Details Date Type Department Care Team (Late st Contact Info) Description 08/17/2024 Procedure Pass [facility], Ct Scan - [address] [id number] Social History Tobacco Use Types Packs/Day Years [...] st Contact Info) Description 10/25/2024 Procedure Pass [address] [address] 01/18/2025 2:40 PM EDT Office Visit [facility] at [address] [address] Eros Krueger MD 55 [facility] Obstetrics and Gynecology Service[address] [address] Timothy@[email or web address] 01/24/2025 3:15 PM EST Appointment [address] [address] Eros Krueger MD [address] [place] [address] Obstetrics and Gynecology ServiceYAW [address] [place] [address] Timothy@[email or web address] documented as of this encounter Visit Diagnoses Not on filedocumented in this encounter Care Teams Obstetrics Nurse Practitioner Relationship Specialty Start Date End Date Rufino John MD [address] [place] [address] [place] [address] PCP - General Medical Oncology 10/25/23 Eros Krueger MD 55 [facility] Obstetrics and Gynecology ServiceYAW 9E [place] [address] [email or web address] U Gynecologic Oncology 10/12/21 Self-Referred, Patient 01/13/22 Jesse Moore MD [address] [address] [email or web address] Radiation Oncology 08/14/24 documented as of this encounter Additional Source Comments The information contained in this document represents components of the legal health record. It is not the complete legal health record.[facility]
--- OUTSIDE RECORDS SUMMARY | 2024-12-25 12:28 | XMS_ITS | Encounter Summary ---
Author Organization [facility] Address [address] [place] [address] Phone Care Team Providers Care Furniture Upholsterer Name Role Phone Mary Romero MD Primary Care Provider Eros Krueger MD Unavailable [phone] Self-Referred, Patient Unavailable Unavailab Jonathan Díaz NP Primary Care Provider + Rufino John MD Primary Care Provider [phone] Jesse Moore MD Unavailable [phone] Encounter Details Date Type Department Care Team (Late st Contact Info) Description 01/15/2020 Procedure Pass [address] [place] [address] Social History Tobacco Use Types Packs/Day Years [...] st Contact Info) Description 10/25/2024 Procedure Pass [address] [address] 01/18/2025 2:40 PM EDT Office Visit [facility] [address] [place] [address] Eros Krueger MD [address] [place] [address] Obstetrics and Gynecology ServiceYAW [address] [place] [address] [email or web address] 01/24/2025 3:15 PM EST Appointment [facility], [address] [address] Eros Krueger MD [address] [place] [address] Obstetrics and Gynecology ServiceYAW [address] [place] [address] [email or web address] documented as of this encounter Visit Diagnoses Not on filedocumented in this encounter Additional Health Concerns Infection Onset Date Last Indicated Resolved Time CoV-Exposed Comment:Recent close contact documented in the Travel/Symptom Screening Form Entered in error, confirmed no exposure 11/16/2021 11/16/2021 11/16/2021 10:09 AM EDT documented as of this encounter Care Teams Furniture Upholsterer Relationship Specialty Start Date End Date Mary Romero MD [address] [place] [id number] PCP - General Internal Medicine 01/15/20 03/21/23 Jonathan Boudreaux NP [address] [place] [address] [place] [address] PCP - General Nurse Practitioner 03/22/23 10/24/23 Rufino Jhon MD [address] [place] [address] [place] [address] PCP - General Medical Oncology 10/25/23 Eros Krueger MD [address] [place] [address] Obstetrics and Gynecology ServiceYAW [address] [place] [address] [email or web address] Gynecologic Oncology 10/12/21 Self-Referred, Patient 01/13/22 Jesse Moore MD [address] [facility] [address] [place] [address] [email or web address] Radiation Oncology 08/14/24 documented as of this encounter Additional Source Comments The information contained in this document represents components of the legal health record. It is not the complete legal health record.[facility]
--- OUTSIDE RECORDS SUMMARY | 2024-12-25 12:28 | XMS_ITS | Clinical Summary ---
Author Organization [facility] Address [facility] [place] [address] Care Team Providers Care Tube Coverer Name Role Phone Unavailable Primary Care Provider Unavailabl e Social History Tobacco Use Types Packs/Day Years Used Date Smoking Tobacco: Never Assessed Comments Unknown Sex and Gender Information Value Date Recorded Sex Assigned at Not on file Legal Sex Female 9:12 AM EDT Gender Identity Not on file Sexual Orientation Not on file Plan of Treatment Health Maintenance Due Date Last Done Comments CT Colonography 1972 Colonoscopy 1972 Colorectal Cancer Screening 1970 FIT DNA 1972 FIT 1972 Sigmoidoscopy (10 year) with FIT yearly 1972 Sigmoidoscopy 1972 HIV screen 02/23/1990 Hepatitis C Screening 02/23/1990 Hepatitis B vaccine (0-59 yr s) and Risk (1) 02/23/1991 Tetanus/Diphtheria/Pertussis Vaccines (1 - Tdap) 02/23/1991 Breast Cancer Share Decision Needed 2012 Pneumoccocal Vaccine: 50+ (1 of 1 - PCV) 02/23/2022 Zoster vaccine (1 of 2) 02/23/2022 HPV test 02/13/2024 02/12/2019 PAP Smear 02/13/2024 02/12/2019 Covid-19 Vaccine (1 - season) 2024 Influenza (Flu) vaccine (1 o f 1 - Influenza standard series) 11/19/2024 Breast Cancer screening 06/16/2025 06/17/19 24, 03/09/2022, 03/06/2021 Procedures Procedure Name Priority Date/Time Associated Diagnosis Comments MAMMO SCREENING CAD AND HUEY BILATERAL Routine 06/17/2023 9:53 AM EDT HPV Routine 02/12/2019 12:30 PM EST COAT HANGER SHAPER MACHINE OPERATOR CYTOLOGY FINAL REPORT Routine 02/12/2019 12:30 PM EST from Last 3 Months or Most Recently Relevant to Health Maintenance Results * Mammo Screening Cad and Huey Bilateral (06/17/2023 9:53 AM EDT) PT CLASS O RAD ADMITDTTM [id number] RAD PT RAD MD INFO [id number]^SANGEETA^ GAILYN^B RAD EXAM DESC MADDSCTO^MAMMO SCREENING CAD AND HUEY BILATERAL^RIS RAD Anatomical Region Laterality Modality Breast Bilateral Mammography 06/17/2023 9:52 AM EDT Impressions 06/17/2023 1:55 PM EDT No mammographic evidence of malignancy. Routine annual [...] who have questions please contact the health transition of care specialist that requested your imaging first. Narrative 06/17/2023 1:55 PM EDT EXAMINATION: MAMMO SCREENING CAD AND HUEY BILATERAL REASON FOR EXAM: Screening TECHNIQUE: CC and MLO views were obtained of BOTH breasts. 2D and 3D tomosynthesis images were obtained. Computer aided detection was used. COMPARISON: Comparison was made to the prior relevant examinations. BREAST DENSITY: The breast tissue is heterogeneously dense, which may obscure small masses. FINDINGS: There are no suspicious microcalcifications, masses, or areas of distortion. Stable appearance. Procedure Note Nikki Jung MD - 06/17/2023 EXAMINATION: MAMMO SCREENING CAD AND HUEY BILATERAL REASON FOR EXAM: Screening TECHNIQUE: CC and MLO views were obtained of BOTH breasts. 2D and 3D tomosynthesis images were obtained. Computer aided detection was used. COMPARISON: Comparison was made to the prior relevant examinations. BREAST DENSITY: The breast tissue is heterogeneously dense, which may obscure smallmasses. FINDINGS: There are no suspicious microcalcifications, masses, or areas ofdistortion. Stable appearance. IMPRESSION No mammographic evidence of malignancy. Routine annual screening mammography is recommended. FINAL ASSESSMENT: BI-RADS Category 1: Negative * Regular screening mammograms starting at age 40 reduces the risk ofdeath from breast cancer. * Yearly screening provides the most benefit. Women should discuss withtheir provider their preferred breast cancer screening schedule. * Women should report any breast changes to a health care provider rightaway. * Some women, because of their family history, a genetic tendency, orother factors, should be screened with annual breast MRI as well as withmammograms. Thank you for letting us participate in the care of this patient. If youare a health care provider and have any questions regarding this report,please contact the number below. For patients who have questions please contactthe health transition of care specialist that requested your imaging first. Heather Parker MD [facility] MAMMO ORDERABLES Final Resu lt * HPV (02/12/2019 12:30 PM EST) HPV16 NEGATIVE NEGATIVE [facility] HPV 18 NEGATIVE NEGATIVE [facility] HPV Other HR NEGATIVE NEGATIVE [facility] HPV Interpretation See Comment [facility] Comment: NEGATIVE for high-risk HPV *. * Testing negative for high risk HPV means that the specimen is negative for the following 14 types tested: types 16, 18, 31, 33, 35, 39, 45, 51, 52, 56, 58, 59, 66, and 68. The test is not intended to detect low risk HPV types. Serena Kaila HPV test Specimen: HPV Testing - Cytology Liquid Based Prep Cervical swab (specimen) 02/12/2019 12:30 PM EST 02/13/2019 9:35 PM EST Narrative Resulting Agency Comment Spec In Lab us Mary Romero MD PATHOLOGY/CYTOLOGY ORDERABLE S Final Result [facility] [place] [address] * Feather Washer Cytology Final Report (02/12/2019 12:30 PM EST) Feather Washer Cytology Final Report [id number] Location: [facility] The signing pathologist has (i) examined the relevant preparation(s) for the specimen(s) and (ii) rendered or confirmed the diagnosis(es). . Feather Washer Final DIAGNOSIS Normal Negative for intraepithelial lesion or malignancy (NILM). For consensus guidelines for the management of cervical cancer screening test results, please see: http://www.asccp. org . Electronically signed by: Jing CAMPOS(ASCP)Mitali Verified: 02/26/2019 Employee Wellness/Fitness Coordinator Performed at: -[facility] Dept. of Pathology, [place], [place] HPV RESULTS HPV16 (Result) Negative HPV18 (Result) Negative HPVOHR (Result) Negative HPV (Interpretation) See Below HPV (Interpretation) Text: NEGATIVE for high-risk HPV *. *Testing negative for high risk HPV means that the specimen is negative for the following 14 types tested: types 16, 18, 31, 33, 35, 39, 45, 51, 52, 56, 58, 59, 66, and 68. The test is not intended to detect low risk HPV types. Serena kaial HPV test Specimen: HPV Testing - Cytology Liquid Based Prep The Serena kaila HPV test was validated, performed and results reported through the [facility] ([facility]) at [facility]. - Víctor Ordoñez, PhD, HCLD, Director-[facility] STATEMENT OF ADEQUACY Specimen submitted is satisfactory. Endocervical component present. CLINICAL INFORMATION HPV Option: Concurrent HPV CT/NG Option: (not provided) Preparation: Liquid Based Pap Specimen Source: Cervical/LBP LMP: 01/30/2019 Hysterectomy?: No ?: No ?: No I.U.D.?: No Pelvic Radiation: No Hist Abnl Pap/Biopsy?: No Prior COAT HANGER SHAPER MACHINE OPERATOR Therapy?: No Hist of HPV Vaccine?: No Clinical Data, Significant Therapy and Clinical Impression : _ Referring Identifier: (not provided) . CLINICAL INFORMATION This Pap Test has been evaluated with the assistance of the nothingGrinderPrep Pap Test Imaging System. Note: The Pap test is a screening test for cervical cancer with an inherent false-negative rate dependent upon several variables. For further information please contact the [facility] Laboratory. Reference: Hue DYER. Equipment Mechanic Specialist of Pap Smear Results. In: Kb BS, Steven FUNEZ, ed. The Pap Smear. [place]: Jf, 2002: 71-77. [facility] 02/12/2019 12:3 0 PM EST us Mary Romero MD PATHOLOGY/CYTOLOGY ORDERABLE S Final Result [facility] [place] [address] from Last 3 Months or Most Recently Relevant to Health Maintenance Insurance [id number] (Home) [address] [place] [address] [facility]
--- OUTSIDE RECORDS SUMMARY | 2024-12-25 12:28 | XMS_ITS | Patient Health Record ---
Author Organization Rufino John III, MD Address [address] [place] [address] Care Team Providers Care Theatrical Scenic Designer Name Role Phone Dr. Rufino John III Primary Care Provider Allergies Allergen (clinical drug ingredient) Drug/Non Drug Allergy documented on EMR Reaction Allergy Type Onset Date Status sulfacetamide Sulfacetamide rash Drug Allergy Active No Known Food Allergy Unknown Drug Allergy Active Results Component Value Reference Range Notes MAMMOGRAM DIGITAL BILATERAL SCREEN Reviewed date:12/25/2024 09:40:53 AM Interpretation:undefined Performing Lab: Notes/Report: undefined MM tomosynthesis screening B I Reviewed date:11/20/2024 05:05:32 AM Interpretation: Performing Lab: Notes/Report: [address] [place] [id number] Mammography Report Signed Patient: Farnaz Streeter MR#: [id number] : 1970 Acct:[id number] Age/Sex: 54 / F ADM Date: 10/16/24 Loc: HO.MAMMO Attending Dr: Rufino John MD Ordering Physician: Rufino John MD Results: 1Negativ e Date of Service: 10/16/24 Follow Up: 1 Year From Orig ina Mammogram Procedure(s): MM tomosynthesis screening BI Accession Number(s): [id number] cc: Rufino John MD EXAMINATION: MM SCREENING DIGITAL BREAST TOMOSYNTHESIS, BILATERAL CLINICAL INFORMATION: Screening. Asymptomatic. COMPARISON: Mammography: Comparison is made with available priors TECHNIQUE: Digital breast mammography with tomosynthesis is performed in both the craniocaudal and mediolateral oblique views along with computer-aided detection (CAD). FINDINGS: The breasts are heterogeneously dense, which may obscure small masses (ACR BI-RADS breast composition Category c). There are no significant masses, abnormal calcifications, or other abnormalities. MM/MM tomosynthesis screening BI IMPRESSION: No mammographic evidence of malignancy. ASSESSMENT: BI-RADS BI-RADS 1 - Negative RECOMMENDATION: Routine annual mammography screening. 1 year F/U This examination should not preclude the clinical evaluation of a suspicious palpable abnormality. This patient's information was entered into a reminder system with a target due date for their next mammogram. Electronically signed by: Ester Lopez DO 10/26/2024 03:35 PM EDT RP Dictated By: Ester Lopez DO Signed By: <Electronically signed by Ester Lopez DO in OV> 10/26/24 1535 DD/ 1502 TD/TT: 10/16/24 1534 Brain Surgeon: [facility] [address] [place] [address] Mammography Report Signed Patient: Farnaz Streeter MR#: [id number] : 1970 Acct:[id number] Age/Sex: 54 / F ADM Date: 10/16/24 Loc: HO.MAMMO Attending Dr: Rufino John MD Ordering Physician: Rufino John MD Results: 1Negativ e Date of Service: Follow Up: 1 Year From [facility] Mammogram Procedure(s): MM katrina osynthesis screening BI Accession Number(s): [id number] cc: Rufino John MD EXAMINATION: MM SCREENING DIGITAL BREAST TOMOSYNTHESIS, BILATERAL CLINICAL INFORMATION: Screening. Asymptomatic. COMPARISON: Mammography: Compari son is made with available priors TECHNIQUE: Digital breast mammo graphy with tomosynthesis is performed in both the craniocaudal and med iolateral oblique views along with computer-aided detection (CAD). FINDINGS: The breasts are heterogeneously dense, which may obscure small masses (ACR BI-RADS breast composition Category c). There are no signifi cant masses, abnormal calcifications, or other abnormalities. M M/MM tomosynthesis screening BI IMPRESSION: No mammographic evid ence of malignancy. ASSESSMENT: BI-RADS BI-RADS 1 - Negative RECOMMENDATION: Routine annual mammo graphy screening. 1 year F/U This examination carlos uld not preclude the clinical evaluation of a suspicious palpable abnormality. This patient's infor mation was entered into a reminder system with a target due date for their next mammogram. Electronically bunny d by: Ester Lopez DO 10/26/2024 03:35 PM EDT RP Dictated By: Ester Jarrett i, DO Signed By: <Electron ically signed by Ester Lopez DO in OV> 10/26/24 1535 DD/ 1502 TD/TT: 10/16/24 1534 Brain Surgeon: Complete Blood Count Auto Di ff (Not yet reviewed by provider) Interpretation: Performing Lab:[facility], [address] [place] [id number] Notes/Report: White Blood Count 4.8 4.8-10.8 X10*3/uL Red Blood Count 5.56 4.20-5.50 X10*6/uL Hemoglobin 13.8 12.0-16.0 g/dl Hematocrit 44.2 37.0-47.0 % Mean Corpuscular Volume 79.5 80.0-98.0 fL Mean Corpuscular Hemoglobin 24.8 27.0-33.0 pg Mean Corpuscular HGB Conc 31.2 31.0-35.0 g/dl Red Cell Distribution Width 13.2 11.0-16.0 % Platelet Count 246 160-400 X10*3/uL Mean Platelet Volume 9.0 9.4-12.3 fL Neutrophils Percent Auto 53.3 45-73 % Imm Gran Pct Auto 0.2 0.0-0.4 % Lymphocytes Percent Auto 34.1 20-40 % Monocytes Percent Auto 9.1 2-11 % Eosinophils Percent Auto 2.7 0-4 % Basophils Percent Auto 0.6 0-2 % NRBC Pct Auto 0.0 0.0-0.2 /100WBC Neutrophils Absolute Auto 2.6 2.0-8.3 x10*3/u L Imm Gran Abs Auto 0.01 0.00-0.03 X10*3/uL Lymphocytes Absolute Auto 1.7 1.2-4.9 X10*3/u L Monocytes Absolute Auto 0.4 0.1-1.2 X10*3/uL Eosinophils Absolute Auto 0.1 0.0-0.4 X10*3/u L Basophils Absolute Auto 0.0 0.0-0.2 X10*3/uL NRBC Abs Auto 0.000 0.0-0.012 X10*3/uL Reason For Referral Reason Second Opinion Que stioning Recurrent Endometrial Cancer interval development of 2 new nodules of the vaginal orifice seen on recent CT scan 08/31/24 Diagnosis 1 Endometrial cancer ( C54.1) Referral Organization Rufino John III, MD Referring Provider First Name Rufino Referring Provider Last Name Dora Referring Provider Speciality Internal M edicine Referred Provider [facility] [place] Referred Provider Specialty Gynecologic Oncology General Notes D, Shari 10/31/2024 10:34:05 AM > Referral, note from [facility] Oncology 09/09/[address] done on 08/31/24 faxed to [facility]., Shari Bauer 11/06/2024 11:11:01 AM > Insurance referral was faxed to [facility] MOP MAKER Oncology. Patient was made aware she is able to call and schedule her appointment. Referral Priority Routine Referral Appointment Date 12/06/2024 Medications Medication SIG (Take, Route, Frequency, Duration) Notes Start Date End Date Status Macrodantin 100 MG 1 capsule Orally twi ce a day 11/08/2023 Active Ergocalciferol 1.25 MG (00777 UT) 1 capsule Orally weekly 11/08/2023 Acti [...] nonsmoker Additional Findings: Tobacco Non-User Aggressive non-smoker Alcohol Screen Question Answer Notes Did you have a drink contain ing alcohol in the past year? Yes How often did you have a dri nk containing alcohol in the past year? Monthly or less (1 point) How many drinks did you have on a typical day when you were drinking in the past year? 1 or 2 drinks (0 point) How often did you have 6 or more drinks on one occasion in the past year? Never (0 point) Points 1 Interpretation Negative Problems Problem Type SNOMED Code ICD Code Onset Dates Problem Status W/U Status Risk Notes Problem Primary malignant neoplasm of endometrium (29686173) Endometrial cancer (C54.1) Active confirmed She was found to have an early-stage endometrial carcinoma treated with surgery and then radiation at [facility] last year. She appears to be in durable remission at this time. 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 Sulfa drugs will be avoided. Problem 94697828 Cervical radiculopathy (M54.12) Active confirmed She has occasional pain in her neck with range of motion but is free of that symptom currently. It will be treated as needed. Problem 46006068 Vitamin D deficiency (E55.9) Active confirmed She will continue on her vitamin D supplement Problem 133038913 Seasonal allergies (J30.2) Active confirmed She is currently asymptomatic. Normally. She will use an aftl-zfe-brswbn r nondrowsy antihistamine. 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 Problem 247635339 H/O osteopenia (Z87.39) Active confirmed I recommended she take 500 mg of calcium carbonate twice a day. She is going to take her vitamin D once a week. This was refilled. Problem 72961563 Elevated blood pressure, situational (R03.0) Active confirmed She has been told her blood pressure is elevated at various medical facilities. Her blood pressure today. After lying down was in the normal range. She is going to return once a month for several determinations to see if her blood pressure is truly elevated or not. At this time it seems to have been situational. 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 Vital Signs Heart Rate 69 /min 12/25/2024 Temperature 98.2 degrees Fahrenheit 12/25/2024 Blood pressure diastolic 80 mm Hg 12/25/2024 Height 64.75 in 12/25/2024 Blood pressure systolic 119 mm Hg 12/25/2024 Weight 125 lbs 12/25/2024 BMI 20.96 kg/m2 12/25/2024 Encounters Encounter Location Date Provider Diagnosis Rufino John III, MD [address] [place] [address] [place] [address] 12/25/2024 Rufino John Endometrial cancer C54.1 ; Teresa's thyroiditis E06.3 ; Vitamin D deficiency E55.9 and Elevated blood pressure, situational R03.0 Rufino John III, MD [address] [place] [address] [place] [address] 08/24/2024 Rufino John Teresa's thyroidi tis E06.3 ; Endometrial cancer C54.1 ; Vitamin D deficiency E55.9 ; Breast cancer screening Z12.31 ; Seasonal allergies J30.2 and Cervical radiculopathy M54.12 Rufino John III, MD [address] [place] [address] [place] [address] 10/30/2024 Rufino John III, MD [address] [place] [address] [place] [address] 10/30/2024 Rufino John Assessments Encounter Date Diagnosis (ICD Code) Assessment Notes Treat ment Notes Treatment Clinical Notes 12/25/2024 Endometrial cancer (ICD-10 - C54.1) 08/24/2024 Endometrial cancer (ICD-10 - C54.1) She was found to have an early-stage endometrial carcinoma treated with surgery and then radiation at [facility] last year. She appears to be in durable remission at this time. 08/24/2024 Teresa's thyroiditis (ICD-10 - E06.3) Comprehensive blood work including a TSH has been ordered to be done in the next few days. 12/25/2024 Teresa's thyroiditis (ICD-10 - E06.3) 08/24/2024 Vitamin D deficiency (ICD-10 - E55.9) She will continue on her vitamin D supplement 12/25/2024 Vitamin D deficiency (ICD-10 - E55.9) 08/24/2024 Breast cancer screening (ICD-10 - Z12.31) Mammogram has been ordered. There was no sign of breast tumor on today's examination. 12/25/2024 Elevated blood pressure, situational (ICD-10 - R03.0) 08/24/2024 Seasonal allergies (ICD-10 - J30.2) She is currently asymptomatic. Normally. She will use an ebso-pvp-qqtokln nondrowsy antihistamine. 08/24/2024 Cervical radiculopathy (ICD-10 - M54.12) She has occasional pain in her neck with range of motion but is free of that symptom currently. It will be treated as needed. Plan Of Treatment Pending Test Test Name Order Date PROFILE, FASTING (COMPREHENSIVE METABOLI C) 08/24/2024 PROFILE, FASTING (COMPREHENSIVE METABOLI C) 12/25/2024 TSH (THYROID STIMULATING HORMONE) 2024 TSH (THYROID STIMULATING HORMONE) 2024 CBC w DIFF 08/24/2024 CBC w DIFF 12/25/2024 Complete Blood Count Auto Diff Lipid Panel 12/25/2024 Lipid Panel 08/24/2024 Vitamin D 25-OH Total 12/25/2024 Free T4 (Free Thyroxine) 12/25/2024 Free T4 (Free Thyroxine) 08/24/2024 MM tomosynthesis screening BI 08/24/2024 Hemoglobin A1c 08/24/2024 Next Appt Details Provider Name:Rufino John , 06/25/2025 09:00:00 AM, [address] [place] [address] [address], [place], [address], Provider Name:Rufino John , 12/27/2025 09:30:00 AM, [address] [facility] [address] [place], [address], Insurance Providers Payer Name Payer Address Payer Phone Subscriber Number Group Number Insured Name Patient Relationship to Insured Coverage Start Date Coverage End Date [employer] [address] [place] [id number] FARNAZ ROWLEY Self - patient is the insured Medical (General) History Medical History History ICD Code Endometrial cancer, surgery, [facility], Surgery and radiation, in remission Cervical radiculopathy Hypothyroid Sulfa allergy History 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 Farrell, [facility] in September 2023 Seasonal allergies Internal hemorrhoids Postmenopausal with symptoms Postcoital urinary tract infection Osteopenia Elevated blood pressures Thyroiditis in childhood Surgical History Surgery Date(Month/Year) [facility] in [facility] Colonoscopy, Dr. Villa, [facility], hyperplastic polyp and internal hemorrhoids G Abdominal Hysterectomy, [place] Salpingectomy, [place] lymph node biopsy 2022 x 2 2004, 2006 Tonsilectomy
--- OUTSIDE RECORDS SUMMARY | 2024-12-25 12:28 | XMS_ITS | Encounter Summary ---
Author Organization [facility] Address [address] [place] [address] Phone Care Team Providers Care Solar Business Developer Name Role Phone Mary Romero MD Primary Care Provider EvansEros cox MD Unavailable [phone] Self-Referred, Patient Unavailable Unavailab Jonathan Díaz NP Primary Care Provider + Rufino John MD Primary Care Provider [phone] Jesse Moore MD Unavailable [phone] Encounter Details Date Type Department Care Team (Late Contact Info) Description 11/25/2021 Procedure Pass [facility] [address] [place] [phone] Social History Tobacco Use Types Packs/Day Years [...] Encounters Date Type Department Care Team (Late Contact Info) Description 10/25/2024 Procedure Pass [address] [address] 01/18/2025 2:40 PM EDT Office Visit [facility] at [address] [address] Eros Krueger MD [address] [place] [address] [facility]stetrics [facility] Gynecology [facility] [address] [address] [email or web address] 01/24/2025 3:15 PM EST Appointment [address] [address] Eros Krueger MD [address] [place] [address] Obstetrics and Gynecology [address] [address] [email or web address] documented as of this encounter Visit Diagnoses Not on filedocumented in this encounter Care Teams Solar Business Developer Relationship Specialty Start Date End Date Mary Romero MD [address] [place] [phone] PCP - General Internal Medicine 01/15/20 03/21/23 Jonathan Boudreaux NP [address] [place] [address] [place] [address] PCP - General Nurse Practitioner 03/22/23 10/24/23 Rufino John MD [address] [place] [address] [place] [address] PCP - General Medical Oncology 10/25/23 Eros Krueger MD [address] [place] [address] Obstetrics [facility]necology [facility] [address] [address] [email or web address] Gynecologic Oncology 10/12/21 Self-Referred, Patient 01/13/22 Jesse Moore MD [address] [place] [id number] [email or web address] Radiation Oncology 08/14/24 documented as of this encounter Additional Source Comments The information contained in this document represents components of the legal health record. It is not the complete legal health record.[facility]
[2024-12-25 12:38] LABS: Free T4 (Free Thyroxine) 0.96 ng/dL (0.71-1.85); Thyroid Stimulating Hormone 2.79 uIU/mL (0.32-4.0)
== END 2024-12-25 10:22 | disposition home or self-care (01) ==
LOC: HO.LAB 10:21
PROVIDERS: PCP Internal Medicine Medical Oncology; Visit Provider Internal Medicine Medical Oncology
DX: C54.1 Malignant neoplasm of endometrium (principal); E06.3 Autoimmune thyroiditis; E55.9 Vitamin D deficiency, unspecified; E03.0 Congenital hypothyroidism with diffuse goiter
CPT/HCPCS: 36415; 80053; 80061; 82306; 84439; 84443; 85025